=== PATIENT | female | born 1990 | race African-American/Black ===

== ENCOUNTER 2016-12-06 19:20 | Emergency (ER) | payer OTHER ==
[~2016-12-06] VITALS: Ht 160 cm; Wt 71.0 kg
[2016-12-06 19:22] VITALS: BP 109/62; PULSE 76; RESP 16; TEMP 99.6; O2SAT 99
--- NOTE | 2016-12-06 19:34 | PD ---
Physical Exam Time Seen by Provider: 19:32 Narrative 26 year old female with +upt yesterday, here with diarrhea, vomiting, spotting, pelvic pain today. +chills during a nap. LMP october 27. VSS seen at triage desk. Awaiting bed placement. Data Data Last Documented VS Vital Signs Date Time Temp Pulse Resp B/P Pulse Ox O2 Delivery O2 Flow Rate FiO2 12/06/16 19:22 99.6 76 16 109/62 99 MDM Medical Record Reviewed: Yes Supervised Visit with SANTOSH: Yes Scripts No Active Prescriptions or Reported Meds Kenneth Hunt Dec 06, 2016 19:33
[2016-12-06] MEDS ORDERED: SODIUM CHLOR 0.9% 1000 ML INJ 1,000 ML IV ONE (20:05)
--- NOTE | 2016-12-06 20:12 | PD ---
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 Patient states she had a positive urine test yesterday. Her last menstrual cycle was October 27, 2016. Patient is a G4, P1. She reports one previous miscarriage and one previous . The patient states she has had some brown spotting for the past 3 days. She states she has lower abdominal pain and cramping. Patient states nausea, vomiting, diarrhea started today. She reports 2 episodes of vomiting and multiple episodes of diarrhea. No blood in her stool. No fevers or chills. Patient has no chronic medical problems and takes no medications. Patient reports one sexual partner for the past 3 years and denies any risk of STDs. PFSH Past Medical History Medical History: Denies Significant Hx Diminished Hearing: No Immunizations Current: Yes Tetanus Vaccination: < 5 Years Influenza Vaccination: Yes ?: LMP: "OCTOBER" : 2 Para: 1 : 1 Ovarian Cysts: Yes (HX) Social History Alcohol Use: No Tobacco Use: No Substance Use: No Allergies-Medications (Allergen,Severity, Reaction): Coded Allergies: No Known Allergies (Unverified , 12/06/16) Reported Meds & Prescriptions Reported Meds & Active Scripts Active No Active Prescriptions or Reported Medications Review of Systems Except as stated in HPI: all other systems reviewed are Neg Physical Exam Narrative GENERAL: Well-nourished, well-developed female patient, ambulatory. Afebrile. SKIN: Focused skin assessment warm/dry. HEAD: Normocephalic. Atraumatic. EYES: No scleral icterus. No injection or drainage. NECK: Supple, trachea midline. No JVD or lymphadenopathy. CARDIOVASCULAR: Regular rate and rhythm without murmurs, gallops, or rubs. RESPIRATORY: Breath sounds equal bilaterally. No accessory muscle use. Lungs sounds are clear to auscultation. GASTROINTESTINAL: Abdomen soft and nondistended. Patient has tenderness over suprapubic region and left pelvic area. MUSCULOSKELETAL: No cyanosis, or edema. BACK: Nontender without obvious deformity. No CVA tenderness. GENITOURINARY: Normal external genitalia without lesions or erythema. Vaginal vault without blood or drainage. Cervical os was closed with mild brown drainage noted. No cervical motion tenderness. Uterus nontender and nonenlarged. Bilateral adnexa nontender without masses. Exam was done with RN at bedside. Data Data Last Documented VS Vital Signs Date Time Temp Pulse Resp B/P Pulse Ox O2 Delivery O2 Flow Rate FiO2 12/06/16 19:35 16 12/06/16 19:22 99.6 76 109/62 99 Orders Complete Blood Count With Diff (12/06/16 20:05) Comprehensive Metabolic Panel (12/06/16 20:05) Gc And Chlamydia Pcr (12/06/16 20:05) Complete Rh (12/06/16 20:05) Us Pelvis (Ques Preg/Ectopic) (12/06/16 ) Wet Prep Profile (12/06/16 20:05) Urinalysis - C+S If Indicated (12/06/16 20:05) Iv Access Insert/Monitor (12/06/16 20:05) Sodium Chlor 0.9% 1000 Ml Inj (Ns 1000 M (12/06/16 20:05) Ed Urine Pregnancytest Poc (12/06/16 20:05) Ondansetron Inj (Zofran Inj) (12/06/16 20:15) Acetaminophen (Tylenol) (12/06/16 20:15) Beta Hcg (Quant/Titer) (12/06/16 20:08) Labs Laboratory Tests Test 12/06/16 20:40 White Blood Count 8.8 TH/MM3 Red Blood Count 4.36 MIL/MM3 Hemoglobin 12.9 GM/DL Hematocrit 37.3 % Mean Corpuscular Volume 85.6 FL Mean Corpuscular Hemoglobin 29.5 PG Mean Corpuscular Hemoglobin 34.4 % Concent Red Cell Distribution Width 13.3 % Platelet Count 319 TH/MM3 Mean Platelet Volume 8.3 FL Neutrophils (%) (Auto) 61.6 % Lymphocytes (%) (Auto) 30.7 % Monocytes (%) (Auto) 5.2 % Eosinophils (%) (Auto) 1.9 % Basophils (%) (Auto) 0.6 % Neutrophils # (Auto) 5.4 TH/MM3 Lymphocytes # (Auto) 2.7 TH/MM3 Monocytes # (Auto) 0.5 TH/MM3 Eosinophils # (Auto) 0.2 TH/MM3 Basophils # (Auto) 0.1 TH/MM3 CBC Comment DIFF FINAL Differential Comment MDM Medical Decision Making Medical Screen Exam Complete: Yes Emergency Medical Condition: Yes Medical Record Reviewed: Yes Differential Diagnosis Intrauterine versus ectopic versus viral syndrome versus UTI versus electrolyte abnormality versus hyperemesis gravidarum Narrative Course 26-year-old female presents to the emergency department for evaluation nausea, vomiting, diarrhea, lower abdominal crampingpain with a positive test yesterday. She also reports brown spotting for the past 3 days. CBC, CMP , UA, complete Rh, beta hCG are ordered and pending. Urine test is ordered and pending. Swabs for chlamydia and gonorrhea as well as wet prep are ordered. Patient gives verbal consent for pelvic exam. Patient is given normal saline 1 L IV bolus and Zofran 4 mg IV. She is also given Tylenol 650 mg by mouth for pain. UPT is positive. CBC is unremarkable. Remainder of laboratory tests are pending as well as US. Dr. Freitas will resume care and disposition. Scripts No Active Prescriptions or Reported Meds Flory Aguiar Dec 06, 2016 20:12
[2016-12-06] MEDS ORDERED: ACETAMINOPHEN 325 MG TAB PO ONE (20:15)
[2016-12-06] MEDS ORDERED: ONDANSETRON HCL 4 MG/2 ML VIAL IV PUSH ONE (20:15)
[2016-12-06 20:51] LABS: AUTOMATED NEUTROPHIL # 5.4 TH/MM3 (1.8-7.7); BASOPHIL # 0.1 TH/MM3 (0-0.2); BASOPHIL % 0.6 % (0.0-2.0); EOSINOPHIL # 0.2 TH/MM3 (0-0.4); EOSINOPHIL % 1.9 % (0.0-4.0); HEMATOCRIT 37.3 % (35.0-46.0); HEMO FLAGS DIFF FINAL; LYMPH % 30.7 % (9.0-44.0); LYMPHOCYTE # 2.7 TH/MM3 (1.0-4.8); MEAN CELL VOLUME 85.6 FL (80.0-100.0); MEAN CORPUSCULAR HEMOGLOBIN 29.5 PG (27.0-34.0); MEAN CORPUSCULAR HGB CONC 34.4 % (32.0-36.0); MONO % 5.2 % (0.0-8.0); NEUT % 61.6 % (16.0-70.0); PLATELET COUNT 319 TH/MM3 (150-450); RED BLOOD COUNT 4.36 MIL/MM3 (4.00-5.30); RED CELL DISTRIBUTION WIDTH 13.3 % (11.6-17.2); WHITE BLOOD COUNT 8.8 TH/MM3 (4.0-11.0)
[2016-12-06 21:17] LABS: ANION GAP 8 MEQ/L (5-15)
[2016-12-06 21:20] LABS: ALKALINE PHOSPHATASE 71 U/L (45-117); ALT (GPT) 20 U/L (10-53); AST (GOT) 19 U/L (15-37); BICARBONATE 22.9 MEQ/L (21.0-32.0); BLOOD UREA NITROGEN 12 MG/DL (7-18); CHLORIDE 106 MEQ/L (98-107); GLOMERULAR FILTRATION RATE 128 ML/MIN (>89); POTASSIUM 3.9 MEQ/L (3.5-5.1); SODIUM (NA) 137 MEQ/L (136-145); TOTAL BILIRUBIN ADULT 0.2 MG/DL (0.2-1.0)
[2016-12-06 21:28] LABS: BLOOD, URINE SMALL (NEG); COMMENT (UR) CULT NOT INDICATED; CULTURE IF INDICATED CULT NOT INDICATED; GLUCOSE,URINE NEG (NEG); KETONE, URINE NEG (NEG); MUCUS URINE FEW /lpf (OCC); NITRITE,URINE NEG (NEG); PH, URINE 5.5 (5.0-8.5); SQUAMOUS EPITHELIAL CELL URINE 1 /hpf (0-5); URINE COLOR YELLOW (YELLW/STRAW)
[2016-12-06 21:31] LABS: BETA HCG QUANT 4879 MIU/ML (0-5)
[2016-12-06 22:54] VITALS: BP 104/57; PULSE 80; RESP 16; O2SAT 98
[2016-12-06 23:10] LABS: CHLAMYDIA PCR NOT DETECTED (NOT DETECT); NEISSERIA PCR NOT DETECTED (NOT DETECT)
--- NOTE | 2016-12-07 00:08 | RADRPT ---
EXAM DATE/TIME: 12/06/2016 21:47 [facility] COMPARISON: No previous studies available for comparison. INDICATIONS : Bleeding and pain with . LAB(S): Beta-hC MEDICAL HISTORY : . Miscarriage. Ovarian cysts. SURGICAL HISTORY : None. ENCOUNTER: Initial ACUITY: 2 days PAIN SCORE: 8/10 LOCATION: Bilateral pelvis MEASUREMENTS: UTERUS: 8.4 x 5.8 x 4.7 cm ENDOMETRIAL STRIPE: 9 mm RIGHT OVARY: 5.5 x 3.3 x 3.3 cm LEFT OVARY: 3.9 x 1.2 x 1.3 cm FREE FLUID: Yes Adjacent to the right ovary. CROWN RUMP LENGTH: Non visualized. = WKS DAYS FHR: Non visualized. BPM FINDINGS: UTERUS: gestational sac seen measuring 8 x 4 x 3 mm. No yolk sac or heart tones. Nabothia n cysts within the cervix measuring 9 x 5 x 6 mm. RIGHT OVARY: Complex cystic lesion with some minimal mural nodularity measures 3.0 x 3.0 x 2.7 cm. LEFT OVARY: Ovary contains no mass or significant cystic lesion. MISCELLANEOUS: Trace free fluid. CONCLUSION: 1. Probable early gestational sac without yolk sac or pole. Close interval followup recommended . 2. Complex cystic lesion right ovary measures 2.0 cm may be related to corpus luteal cyst. Tigre Tran MD on December 07, 2016 at 0:04 Board Certified Radiologist. This report was verified electronically.
[2016-12-07] MEDS ORDERED: ZOFR4TAB3 SL (00:30)
--- NOTE | 2016-12-07 00:30 | PD ---
Data Data Last Documented VS Vital Signs Date Time Temp Pulse Resp B/P Pulse Ox O2 Delivery O2 Flow Rate FiO2 12/06/16 22:54 80 16 104/57 98 Room Air 12/06/16 19:22 99.6 Orders Complete Blood Count With Diff (12/06/16 20:05) Comprehensive Metabolic Panel (12/06/16 20:05) Gc And Chlamydia Pcr (12/06/16 20:05) Complete Rh (12/06/16 20:05) Wet Prep Profile (12/06/16 20:05) Urinalysis - C+S If Indicated (12/06/16 20:05) Iv Access Insert/Monitor (12/06/16 20:05) Sodium Chlor 0.9% 1000 Ml Inj (Ns 1000 M (12/06/16 20:05) Ed Urine Pregnancytest Poc (12/06/16 20:05) Ondansetron Inj (Zofran Inj) (12/06/16 20:15) Acetaminophen (Tylenol) (12/06/16 20:15) Beta Hcg (Quant/Titer) (12/06/16 20:08) Us Pelvis (Ques Pr/Ect)W Trans (12/06/16 ) Labs Laboratory Tests Test 12/06/16 12/06/16 12/06/16 20:40 20:45 20:55 White Blood Count 8.8 TH/MM3 Red Blood Count 4.36 MIL/MM3 Hemoglobin 12.9 GM/DL Hematocrit 37.3 % Mean Corpuscular Volume 85.6 FL Mean Corpuscular Hemoglobin 29.5 PG Mean Corpuscular Hemoglobin 34.4 % Concent Red Cell Distribution Width 13.3 % Platelet Count 319 TH/MM3 Mean Platelet Volume 8.3 FL Neutrophils (%) (Auto) 61.6 % Lymphocytes (%) (Auto) 30.7 % Monocytes (%) (Auto) 5.2 % Eosinophils (%) (Auto) 1.9 % Basophils (%) (Auto) 0.6 % Neutrophils # (Auto) 5.4 TH/MM3 Lymphocytes # (Auto) 2.7 TH/MM3 Monocytes # (Auto) 0.5 TH/MM3 Eosinophils # (Auto) 0.2 TH/MM3 Basophils # (Auto) 0.1 TH/MM3 CBC Comment DIFF FINAL Differential Comment Sodium Level 137 MEQ/L Potassium Level 3.9 MEQ/L Chloride Level 106 MEQ/L Carbon Dioxide Level 22.9 MEQ/L Anion Gap 8 MEQ/L Blood Urea Nitrogen 12 MG/DL Creatinine 0.68 MG/DL Estimat Glomerular Filtration 128 ML/MIN Rate Random Glucose 83 MG/DL Calcium Level 9.0 MG/DL Total Bilirubin 0.2 MG/DL Aspartate Amino Transf 19 U/L (AST/SGOT) Alanine Aminotransferase 20 U/L (ALT/SGPT) Alkaline Phosphatase 71 U/L Total Protein 7.4 GM/DL Albumin 3.5 GM/DL Human Chorionic Gonadotropin, 4879 MIU/ML Quant Blood Type A POSITIVE Rho(D) Type POSITIVE Urine Color YELLOW Urine Turbidity CLEAR Urine pH 5.5 Urine Specific [place] 1.030 Urine Protein TRACE mg/dL Urine Glucose (UA) NEG mg/dL Urine Ketones NEG mg/dL Urine Occult Blood SMALL Urine Nitrite NEG Urine Bilirubin NEG Urine Urobilinogen LESS THAN 2.0 MG/DL Urine Leukocyte Esterase NEG Urine RBC 2 /hpf Urine WBC 1 /hpf Urine Squamous Epithelial 1 /hpf Cells Urine Mucus FEW /lpf Microscopic Urinalysis Comment CULT NOT INDICATED Clue Cells (Wet Prep) NONE SEEN Vaginal Trichomonas (Wet Prep) NONE SEEN Vaginal Yeast (Wet Prep) NONE SEEN Chlamydia trachomatis DNA NOT DETECTED (PCR) Neisseria gonorrhoeae DNA NOT DETECTED (PCR) MDM Supervised Visit with SANTOSH: Yes Narrative Course I, Dr. Freitas, have reviewed the advance practice practitioner's documentation and am in agreement, met with the patient face to face, made the diagnosis, and the medical decision making was done by me. See her note for further details. Briefly this is 26-year-old female who presented to the emergency department for evaluation of nausea, vomiting, diarrhea, pubic abdominal pain, and vaginal spotting. Patient reports having a positive home urine test yesterday. Her LMP was October 27, 2016. She has had some lower abdominal/pelvic pain and cramping since yesterday. Nausea, vomiting, and diarrhea started today. She is also had some light vaginal spotting. Vital signs show heart rate 76, blood pressure 109/62, pulse ox 99% on room air , oral temp of 99.6F. CBC shows WBC 8.8, hemoglobin 12.9, hematocrit 37.3, platelets 319. CMP is unremarkable. Beta hCG is 4879. UA shows small occult blood, few mucus, not suggestive of UTI. Wet prep is negative for clue cells, negative for yeast, negative for Trichomonas. Gonorrhea and chlamydia PCR are negative. Blood type is A+. Pelvic ultrasound: CONCLUSION: 1. Probable early gestational sac without yolk sac or pole. Close interval followup recommended. 2. Complex cystic lesion right ovary measures 2.0 cm may be related to corpus luteal cyst. Patient was made aware of all findings. She is resting comfortably and she is feeling much better after receiving Zofran and Tylenol. Her abdominal exam is benign. There is no tenderness. No peritoneal signs. Her H&H is normal. Her vital signs are normal. At this point the plan is to discharge patient home and have her follow-up in the emergency department in 48 hours for repeat beta hCG. She was informed on when to return to the emergency Department sooner. She verbalizes understanding and agreement with plan. 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 Return to the emergency Department sooner for worsening symptoms or any other concerns as discussed. Stay hydrated with plenty of fluids. 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 Scripts Ondansetron Odt (Zofran Odt)4 Mg Tab4 Mg SL Q12HR PRN (Nausea/Vomiting) #10 TAB Ref 0 Prov:Marcelo Freiats MD 12/07/16 Disposition: 01 DISCHARGE HOME Condition: Stable Marcelo Freitas MD Dec 07, 2016 00:30
[2016-12-07 01:07] VITALS: BP 110/56; PULSE 80; RESP 18; O2SAT 96
== END 2016-12-07 01:10 | disposition home or self-care (01) ==
LOC: NEPD 19:20
DX: O20.9 Hemorrhage in early pregnancy, unspecified (principal); K52.9 Noninfective gastroenteritis and colitis, unspecified; R19.7 Diarrhea, unspecified; R10.2 Pelvic and perineal pain
CPT/HCPCS: 76700; 76817; 80053; 81001; 84702; 84703; 85025; 86901; 87210; 87491; 87591; 96361; 96374; 99284; J2405; J7030

== ENCOUNTER 2016-12-24 21:40 | Observation (INO) | payer MEDICAID, OTHER ==
[~2016-12-24] VITALS: Ht 170.2 cm; Wt 77.4 kg
[~2016-12-24 21:40] MED LIST: ZOFR4TAB3 SL
[2016-12-24 21:41] VITALS: BP 120/53; PULSE 88; RESP 18; TEMP 97.9; O2SAT 98
--- NOTE | 2016-12-24 23:18 | PD ---
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 Pain started periumbilical and from the right back and now it is more right lower abdomen. +NBNB vomiting. +Chills. Pt had vaginal bleeding with clots 3 days ago but it resolved on its own. Pt was seen here on 12/06/16 for first trimester bleeding and had bHCG 4879. US at the time showed probably early gestational sac without yolk sac or pole. Complex cystic lesion in right ovary measuring 2.0 may be related to corpus luteus cyst. +NBNB vomiting. + Chills. Denies any fever, chest pain, sob, vaginal bleeding. PFSH Past Medical History Diminished Hearing: No Immunizations Current: Yes ?: : 2 Para: 1 : 1 Ovarian Cysts: Yes (HX) Social History Alcohol Use: No Tobacco Use: No Substance Use: No Allergies-Medications (Allergen,Severity, Reaction): Coded Allergies: No Known Allergies (Unverified , 12/24/16) Reported Meds & Prescriptions Reported Meds & Active Scripts Active No Active Prescriptions or Reported Medications Review of Systems Except as stated in HPI: all other systems reviewed are Neg Physical Exam Narrative GENERAL: 26yo F in mild distress. SKIN: Focused skin assessment warm/dry. HEAD: Atraumatic. Normocephalic. CARDIOVASCULAR: Regular rate and rhythm. No murmur appreciated. RESPIRATORY: No accessory muscle use. Clear to auscultation. Breath sounds equal bilaterally. GASTROINTESTINAL: Abdomen soft, +TTP RLQ >RUQ. No rebound tenderness or guarding. PELVIC: Cervical os is closed. No blood. Normal physiologic clear discharge. MUSCULOSKELETAL: No obvious deformities. No clubbing. No cyanosis. No edema. NEUROLOGICAL: Awake and alert. No obvious cranial nerve deficits. Motor grossly within normal limits. Normal speech. PSYCHIATRIC: Appropriate mood and affect; insight and judgment normal. Data Data Last Documented VS Vital Signs Date Time Temp Pulse Resp B/P Pulse Ox O2 Delivery O2 Flow Rate FiO2 12/25/16 04:27 18 12/25/16 01:29 79 103/58 99 Room Air 12/24/16 21:41 97.9 Orders Complete Blood Count With Diff (12/24/16 23:13) Basic Metabolic Panel (Bmp) (12/24/16 23:13) Act Partial Throm Time (Ptt) (12/24/16 23:13) Prothrombin Time / Inr (Pt) (12/24/16 23:13) Type And Screen (12/24/16 23:13) Bhcg Screen Qualitative (12/24/16 23:13) Urinalysis - C+S If Indicated (12/24/16 23:13) Ed Poc Ultrasound (12/25/16 ) Ondansetron Inj (Zofran Inj) (12/25/16 01:15) Morphine Inj (Morphine Inj) (12/25/16 01:15) Ct Abd/Pel W Iv Contrast(Rout) (12/25/16 ) Iohexol 350 Inj (Omnipaque 350 Inj) (12/25/16 02:12) Morphine Inj (Morphine Inj) (12/25/16 04:15) Gc And Chlamydia Pcr (12/25/16 04:21) Wet Prep Profile (12/25/16 04:21) Consult General Surgery (12/25/16 ) Admit Order (Ed Use Only) (12/25/16 04:47) Labs Laboratory Tests Test 12/24/16 12/25/16 21:17 01:00 White Blood Count 14.0 TH/MM3 Red Blood Count 4.64 MIL/MM3 Hemoglobin 13.3 GM/DL Hematocrit 40.3 % Mean Corpuscular Volume 86.9 FL Mean Corpuscular Hemoglobin 28.6 PG Mean Corpuscular Hemoglobin 32.9 % Concent Red Cell Distribution Width 13.6 % Platelet Count 290 TH/MM3 Mean Platelet Volume 8.6 FL Neutrophils (%) (Auto) 85.4 % Lymphocytes (%) (Auto) 9.7 % Monocytes (%) (Auto) 4.4 % Eosinophils (%) (Auto) 0.2 % Basophils (%) (Auto) 0.3 % Neutrophils # (Auto) 11.9 TH/MM3 Lymphocytes # (Auto) 1.4 TH/MM3 Monocytes # (Auto) 0.6 TH/MM3 Eosinophils # (Auto) 0.0 TH/MM3 Basophils # (Auto) 0.0 TH/MM3 CBC Comment DIFF FINAL Differential Comment Prothrombin Time 12.6 SEC Prothromb Time International 1.1 RATIO Ratio Activated Partial 29.7 SEC Thromboplast Time Sodium Level 139 MEQ/L Potassium Level 3.7 MEQ/L Chloride Level 104 MEQ/L Carbon Dioxide Level 28.3 MEQ/L Anion Gap 7 MEQ/L Blood Urea Nitrogen 10 MG/DL Creatinine 0.75 MG/DL Estimat Glomerular Filtration 114 ML/MIN Rate Random Glucose 87 MG/DL Calcium Level 9.5 MG/DL Beta HCG, Qualitative 12 MIU/ML Blood Type A POSITIVE Antibody Screen NEGATIVE Urine Color LIGHT-YELLOW Urine Turbidity CLEAR Urine pH 7.5 Urine Specific [place] 1.008 Urine Protein NEG mg/dL Urine Glucose (UA) NEG mg/dL Urine Ketones NEG mg/dL Urine Occult Blood NEG Urine Nitrite NEG Urine Bilirubin NEG Urine Urobilinogen LESS THAN 2.0 MG/DL Urine Leukocyte Esterase NEG Urine RBC 2 /hpf Urine WBC LESS THAN 1 /hpf Urine Squamous Epithelial 5 /hpf Cells Urine Bacteria RARE /hpf Microscopic Urinalysis Comment CULT NOT INDICATED MDM Medical Decision Making Medical Screen Exam Complete: Yes Emergency Medical Condition: Yes Interpretation(s) Laboratory Tests Test 12/24/16 12/25/16 21:17 01:00 White Blood Count 14.0 TH/MM3 (4.0-11.0) Red Blood Count 4.64 MIL/MM3 (4.00-5.30) Hemoglobin 13.3 GM/DL (11.6-15.3) Hematocrit 40.3 % (35.0-46.0) Mean Corpuscular Volume 86.9 FL (80.0-100.0) Mean Corpuscular Hemoglobin 28.6 PG (27.0-34.0) Mean Corpuscular Hemoglobin 32.9 % Concent (32.0-36.0) Red Cell Distribution Width 13.6 % (11.6-17.2) Platelet Count 290 TH/MM3 (150-450) Mean Platelet Volume 8.6 FL (7.0-11.0) Neutrophils (%) (Auto) 85.4 % (16.0-70.0) Lymphocytes (%) (Auto) 9.7 % (9.0-44.0) Monocytes (%) (Auto) 4.4 % (0.0-8.0) Eosinophils (%) (Auto) 0.2 % (0.0-4.0) Basophils (%) (Auto) 0.3 % (0.0-2.0) Neutrophils # (Auto) 11.9 TH/MM3 (1.8-7.7) Lymphocytes # (Auto) 1.4 TH/MM3 (1.0-4.8) Monocytes # (Auto) 0.6 TH/MM3 (0-0.9) Eosinophils # (Auto) 0.0 TH/MM3 (0-0.4) Basophils # (Auto) 0.0 TH/MM3 (0-0.2) CBC Comment DIFF FINAL Differential Comment Prothrombin Time 12.6 SEC (9.8-11.6) Prothromb Time International 1.1 RATIO Ratio Activated Partial 29.7 SEC Thromboplast Time (24.3-30.1) Sodium Level 139 MEQ/L (136-145) Potassium Level 3.7 MEQ/L (3.5-5.1) Chloride Level 104 MEQ/L (98-107) Carbon Dioxide Level 28.3 MEQ/L (21.0-32.0) Anion Gap 7 MEQ/L (5-15) Blood Urea Nitrogen 10 MG/DL (7-18) Creatinine 0.75 MG/DL (0.50-1.00) Estimat Glomerular Filtration 114 ML/MIN Rate (>89) Random Glucose 87 MG/DL (74-106) Calcium Level 9.5 MG/DL (8.5-10.1) Beta HCG, Qualitative 12 MIU/ML (0-5) Blood Type A POSITIVE Antibody Screen NEGATIVE Urine Color LIGHT-YELLOW (YELLW/STRAW) Urine Turbidity CLEAR (CLEAR) Urine pH 7.5 (5.0-8.5) Urine Specific [place] 1.008 (1.002-1.035) Urine Protein NEG mg/dL (NEG-TRACE) Urine Glucose (UA) NEG mg/dL (NEG) Urine Ketones NEG mg/dL (NEG) Urine Occult Blood NEG (NEG) Urine Nitrite NEG (NEG) Urine Bilirubin NEG (NEG) Urine Urobilinogen LESS THAN 2.0 MG/DL (LESS THAN 2.0) Urine Leukocyte Esterase NEG (NEG) Urine RBC 2 /hpf (0-3) Urine WBC LESS THAN 1 /hpf (0-5) Urine Squamous Epithelial 5 /hpf (0-5) Cells Urine Bacteria RARE /hpf (NONE) Microscopic Urinalysis Comment CULT NOT INDICATED Last Impressions Pelvis Ultrasound 12/25/16 0000 Signed Impressions: Service Date/Time: Sunday, December 25, 2016 10:39 - CONCLUSION: 1. No gestational sac seen in the uterus. No retained products of conception identified in the uterus. 2. Trace free fluid in the pelvis. 3. Ovaries within normal limits. Rodriguez Bunch MD Abdomen/Pelvis CT 12/25/16 0000 Signed Impressions: Service Date/Time: Sunday, December 25, 2016 02:10 - CONCLUSION: No convincing evidence of appendicitis but I don't clearly see the appendix. No free fluid or other secondary evidence. If clinical concern persists, followup pelvic CT in 12-24 hours with oral contrast is suggested. Jimmy Galarza MD Differential Diagnosis Ectopic vs. Appendicitis vs. Tuboovarian abscess vs. incomplete Narrative Course 26yo F with RLQ pain concerning for appendicitis. Labs reviewed, leukocytosis of 14.0. bHCG is 12. This was markedly decreased from last bHCG and pt had vaginal bleeding and clots 3 days ago that has stopped. Pt likely had spontaneous . UA showed no leukocyte. No nitrite. Culture not indicated. CTa/p showed no convincing evidence of appendicitis but I dont clearly see the appendix. No free fluid or other secondary evidence. If clinical concern persists, follow up pelvic CT in 12-24 hours with oral contrast is suggested. Pt was given morphine 4mg IV and zofran 4mg IV and pt had improved. Pt reevaluated at bedside and pain has returned and pt still has focal ttp in RLQ. No rebound tenderness or guarding. I am still clinically concern about appendicitis so general surgeon call and pt given another dose of morphine. Discussed with Dr. Chavez and he recommend that I admit to medicine and place a consultation for him and he will evaluate the patient. Procedures Procedure Narrative Emergency department FAST was performed with patient consent. The curvilinear probe was used in the right upper quadrant/Mary's pouch, suprapubic, left upper quadrant/suprarenal space, epigastric, subxyphoid. There was no evidence of peritoneal free fluid or pericardial effusion. Diagnosis Primary Impression: Abdominal pain Qualified Code: R10.31 - Right lower quadrant abdominal pain Admitting Information Admitting Physician Requests: Observation Scripts No Active Prescriptions or Reported Meds Bharati Chacon DO Dec 24, 2016 23:18
[2016-12-24 23:57] LABS: AUTOMATED NEUTROPHIL # 11.9 TH/MM3 (1.8-7.7); BASOPHIL % 0.3 % (0.0-2.0); EOSINOPHIL % 0.2 % (0.0-4.0); HEMATOCRIT 40.3 % (35.0-46.0); HEMO FLAGS DIFF FINAL; LYMPH % 9.7 % (9.0-44.0); LYMPHOCYTE # 1.4 TH/MM3 (1.0-4.8); MEAN CELL VOLUME 86.9 FL (80.0-100.0); MEAN CORPUSCULAR HEMOGLOBIN 28.6 PG (27.0-34.0); MEAN CORPUSCULAR HGB CONC 32.9 % (32.0-36.0); MONO % 4.4 % (0.0-8.0); NEUT % 85.4 % (16.0-70.0); PLATELET COUNT 290 TH/MM3 (150-450); RED BLOOD COUNT 4.64 MIL/MM3 (4.00-5.30); RED CELL DISTRIBUTION WIDTH 13.6 % (11.6-17.2)
[2016-12-25] VITALS (9 sets, daily range): BP systolic 100–115; BP diastolic 52–74; PULSE 72–87; RESP 16–18; TEMP 96.3–97.9; O2SAT 96–100
[2016-12-25 00:03] LABS: APTT (PATIENT) 29.7 SEC (24.3-30.1); INTERNATIONAL NORMALIZED RATIO 1.1 RATIO; PROTHROMBIN TIME - PATIENT 12.6 SEC (9.8-11.6)
[2016-12-25 00:14] LABS: BICARBONATE 28.3 MEQ/L (21.0-32.0); POTASSIUM 3.7 MEQ/L (3.5-5.1)
[2016-12-25] MEDS ORDERED: ONDANSETRON HCL 4 MG/2 ML VIAL IV PUSH ONE ×2 (01:15→12:21)
[2016-12-25] MEDS ORDERED: MORPHINE SULFATE 4 MG/ML INJ IV PUSH ONE ×2 (01:15→04:15)
[2016-12-25 02:08] LABS: BACTERIA, URINE RARE /hpf; BLOOD, URINE NEG (NEG); COMMENT (UR) CULT NOT INDICATED; CULTURE IF INDICATED CULT NOT INDICATED; GLUCOSE,URINE NEG (NEG); KETONE, URINE NEG (NEG); NITRITE,URINE NEG (NEG); PH, URINE 7.5 (5.0-8.5); SQUAMOUS EPITHELIAL CELL URINE 5 /hpf (0-5); URINE COLOR LIGHT-YELLOW (YELLW/STRAW)
[2016-12-25] MEDS ORDERED: IOHEXOL 350 MG/ML 10 ML VIAL (for RAD DIAG) IV ONE ×2 (02:12→17:57)
--- NOTE | 2016-12-25 02:36 | RADRPT ---
EXAM DATE/TIME: 12/25/2016 02:10 [facility] COMPARISON: CT ABDOMEN & PELVIS W/O CONTRAST, April 28, 2016, 11:03. INDICATIONS : Right lower quadrant and groin pain. IV CONTRAST: 95 cc Omnipaque 350 (iohexol) IV ORAL CONTRAST: No oral contrast ingested. RADIATION DOSE: 6.92 CTDIvol (mGy) MEDICAL HISTORY : Ovarian cysts. SURGICAL HISTORY : None. ENCOUNTER: Initial ACUITY: 3 days PAIN SCALE: 3/10 LOCATION: Bilateral lower quadrant TECHNIQUE: Volumetric scanning of the abdomen and pelvis was performed. Using automated exposure control and ad justment of the mA and/or kV according to patient size, radiation dose was kept as low as reasonably achievable to obtain optimal diagnostic quality images. FINDINGS: LOWER LUNGS: The visualized lower lungs are clear. LIVER: Homogeneous density without lesion. There is no dilation of the biliary tree. No calcified gallston es. SPLEEN: Normal size without lesion. PANCREAS: Within normal limits. KIDNEYS: Normal in size and shape. There is no mass, stone or hydronephrosis. ADRENAL GLANDS: Within normal limits. VASCULAR: There is no aortic aneurysm. BOWEL/MESENTERY: The stomach, small bowel, and colon demonstrate no acute abnormality. There is no free intraperitone al air or fluid. Cecum is low lying, seen in the central low pelvic cavity. I don't clearly see the a ppendix. No perceptible inflammatory changes. No free fluid. ABDOMINAL WALL: Within normal limits. RETROPERITONEUM: There is no lymphadenopathy. BLADDER: No wall thickening or mass. REPRODUCTIVE: Within normal limits. INGUINAL: There is no lymphadenopathy or hernia. MUSCULOSKELETAL: Within normal limits for patient age. CONCLUSION: No convincing evidence of appendicitis but I don't clearly see the appendix. No free fluid or other s econdary evidence. If clinical concern persists, followup pelvic CT in 12-24 hours with oral contrast is suggested. Jimmy Galarza MD on December 25, 2016 at 2:30 Board Certified Radiologist. This report was verified electronically.
[2016-12-25] MEDS ORDERED: ACETAMINOPHEN 325 MG TAB PO PRN (05:15)
[2016-12-25] MEDS ORDERED: ONDANSETRON HCL 4 MG/2 ML VIAL IVP PRN (05:15)
[2016-12-25] MEDS ORDERED: NALOXONE HCL 0.4 MG/ML AMP IV PRN (05:15)
[2016-12-25] MEDS ORDERED: MORPHINE SULFATE 4 MG/ML INJ IV PUSH PRN (05:15)
[2016-12-25] MEDS ORDERED: SODIUM CHLORIDE 0.9% FLUSH 10 ML FLUSH IV FLUSH PRN (05:15)
--- NOTE | 2016-12-25 06:16 | HHI.HP ---
[place] [facility] Non-Staff Admission Diagnosis Possible appendicitis Diagnoses: Chief Complaint: abd pain Travel History International Travel<30 Days: No Contact w/Intl Traveler <30 Da: No Traveled to Known Affected Are: No History of Present Illness This is a 26 year old female patient who denies prior medical history. Patient is presents to the ED with c/o abdominal pain that started about 3pm for 0.9 2017. Pain started periumbilical with radiation to the back and now pain is located in the right lower abdominal quadrant. Patient reports the abdominal pain is decreased with the morphine given in emergency department. Abdominal pain worse with palpation. Patient reports associated nausea vomiting and chills. Pt had vaginal bleeding with clots 3 days ago that has spontaneously resolved. Pt was seen here on 12/06/16 for first trimester bleeding and had bHCG 4879. US at the time showed probably early gestational sac without yolk sac or pole. Complex cystic lesion in right ovary measuring 2.0 may be related to corpus luteus cyst. bHCG at this time is 12. Patient denies chest pain or shortness of breath. CT of abdomen and pelvis reveals: No convincing evidence of appendicitis but I don't clearly see the appendix. No free fluid or other secondary evidence. If clinical concern persists, followup pelvic CT in 12-24 hours with oral contrast is suggested Review of Systems Except as stated in HPI: all other systems reviewed are Neg Past Family Social History Past Medical History This is a 26 year old female patient who denies prior medical history. Patient is Past Surgical History Denies prior surgical interventions Reported Medications No Active Prescriptions or Reported Medications Allergies: Coded Allergies: No Known Allergies (Unverified , 12/24/16) Active Ordered Medications Current Medications Medications (Trade) Dose Ordered Sig/Rod Route Start Time Stop Time Status Last Admin (NS Flush) 2 ml UNSCH PRN IV FLUSH 12/25/16 05:15 (NS Flush) 2 ml BID IV FLUSH 12/25/16 09:00 (Tylenol) 650 mg Q4H PRN PO 4/30/17 05:15 (Zofran Inj) 4 mg Q6H PRN IVP 12/25/16 05:15 (Narcan Inj) 0.4 mg UNSCH PRN IV 12/25/16 05:15 (Morphine Inj) 2 mg Q4H PRN IV PUSH 12/25/16 05:15 Family History Father in his 40s secondary to HIV Mother is 48 alive and healthy Social History Patient denies tobacco use or illicit drug use Patient reports a rare social EtOH use Physical Exam Vital Signs Vital Signs Date Time Temp Pulse Resp B/P Pulse Ox O2 Delivery O2 Flow Rate FiO2 12/25/16 05:21 98 12/25/16 04:27 18 12/25/16 01:44 18 12/25/16 01:29 79 18 103/58 99 Room Air 12/24/16 21:41 97.9 88 18 120/53 98 Physical Exam GENERAL: This is a well-nourished, well-developed patient, in no apparent distress. SKIN: No rashes, ecchymoses or lesions. Cool and dry. HEAD: Atraumatic. Normocephalic. No temporal or scalp tenderness. NECK: Trachea midline. No JVD or lymphadenopathy. Supple, nontender, no meningeal signs. CARDIOVASCULAR: Regular rate and rhythm without murmurs, gallops, or rubs. RESPIRATORY: Clear to auscultation. Breath sounds equal bilaterally. No wheezes , rales, or rhonchi. GASTROINTESTINAL: Abdomen soft, tender right upper and lower quadrant right lower quadrant more tender than upper quadrant, nondistended. MUSCULOSKELETAL: Extremities without clubbing, cyanosis, or edema. No joint tenderness, effusion, or edema noted. No calf tenderness. Negative Homans sign bilaterally. NEUROLOGICAL: Awake and alert. No focal deficits identified. Motor and sensory grossly within normal limits. Five out of 5 muscle strength in all muscle groups. Normal speech. Laboratory Laboratory Tests Test 12/24/16 12/25/16 21:17 01:00 White Blood Count 14.0 Red Blood Count 4.64 Hemoglobin 13.3 Hematocrit 40.3 Mean Corpuscular Volume 86.9 Mean Corpuscular Hemoglobin 28.6 Mean Corpuscular Hemoglobin 32.9 Concent Red Cell Distribution Width 13.6 Platelet Count 290 Mean Platelet Volume 8.6 Neutrophils (%) (Auto) 85.4 Lymphocytes (%) (Auto) 9.7 Monocytes (%) (Auto) 4.4 Eosinophils (%) (Auto) 0.2 Basophils (%) (Auto) 0.3 Neutrophils # (Auto) 11.9 Lymphocytes # (Auto) 1.4 Monocytes # (Auto) 0.6 Eosinophils # (Auto) 0.0 Basophils # (Auto) 0.0 CBC Comment DIFF FINAL Differential Comment Prothrombin Time 12.6 Prothromb Time International 1.1 Ratio Activated Partial 29.7 Thromboplast Time Sodium Level 139 Potassium Level 3.7 Chloride Level 104 Carbon Dioxide Level 28.3 Anion Gap 7 Blood Urea Nitrogen 10 Creatinine 0.75 Estimat Glomerular Filtration 114 Rate Random Glucose 87 Calcium Level 9.5 Beta HCG, Qualitative 12 Blood Type A POSITIVE Antibody Screen NEGATIVE Urine Color LIGHT-YELLOW Urine Turbidity CLEAR Urine pH 7.5 Urine Specific [place] 1.008 Urine Protein NEG Urine Glucose (UA) NEG Urine Ketones NEG Urine Occult Blood NEG Urine Nitrite NEG Urine Bilirubin NEG Urine Urobilinogen LESS THAN 2.0 Urine Leukocyte Esterase NEG Urine RBC 2 Urine WBC LESS THAN 1 Urine Squamous Epithelial 5 Cells Urine Bacteria RARE Microscopic Urinalysis Comment CULT NOT INDICATED Result Diagram: 12/24/16211612/24/162116 Imaging Last Impressions Abdomen/Pelvis CT 12/25/16 0000 Signed Impressions: Service Date/Time: Sunday, December 25, 2016 02:10 - CONCLUSION: No convincing evidence of appendicitis but I don't clearly see the appendix. No free fluid or other secondary evidence. If clinical concern persists, followup pelvic CT in 12-24 hours with oral contrast is suggested. Jimmy Galarza MD Assessment and Plan Problem List: (1) Abdominal pain ICD Code: R10.9 Status: Acute Assessment and Plan This is a 26 year old female patient who denies prior medical history. Patient is presents to the ED with c/o abdominal pain that started about 3pm . On 12/06/16 patient had first trimester bleeding and had bHCG 4879. bHCG at this time is 12. CT of abdomen and pelvis reveals: No convincing evidence of appendicitis but I don't clearly see the appendix. No free fluid or other secondary evidence. If clinical concern persists, followup pelvic CT in 12-24 hours with oral contrast is suggested Abdominal pain possibly related to recent miscarriage versus appendicitis CT of abdomen reviewed and reveals: No convincing evidence of appendicitis but I don't clearly see the appendix. No free fluid or other secondary evidence. If clinical concern persists, followup pelvic CT in 12-24 hours with oral contrast is suggested ER provider discussed with general surgery on-call Dr. Chavez who will see patient in consult today Consulted general surgery pending Recent miscarriage- f/u with SUPPLY CHAIN LOGISTICS MANAGER DVT prophylaxis with SCDs Discussed with ER provider, nursing and patient Attending Statement Patient seen and examined by me with the nurse at the bedside, stated the pain is 8 out of 10, she has been given morphine. Patient told me she never seek medical advice since she was here on the , she had significant bleed 3 days ago with clots and and no other tissues, positive nausea chills "Feeling weird when she moved bowel or pass gas "no dysuria no headache or lightheaded, no rectal bleed Patient had 1 miscarriage and 1 in the past she has 1 son All other systems reviewed and was negative except above, f Denies smoking alcohol or illicit drug abuse No family history of miscarriages or bleeding disorder or ectopic , father of HIV No significant past medical history except her OB G as above and no surgeries PE: GENERAL: This is a well-nourished, well-developed patient, in no apparent distress. SKIN: No rashes, warm and dry HEAD: Atraumatic. Normocephalic. EYES: Pupils equal round and reactive. Extraocular motions intact. No scleral icterus. ENT: Nose without bleeding, or drainage, Airway patent. NECK: Trachea midline. Supple CARDIOVASCULAR: Regular rate and rhythm without murmurs, gallops, or rubs. RESPIRATORY: Fair air entry bilaterally. No wheezes, rales, or rhonchi. GASTROINTESTINAL: Abdomen soft, nondistended, positive tenderness in the right lower quadrant, Positive bowel sounds MUSCULOSKELETAL: Extremities without clubbing, cyanosis, or edema. Pedal pulses appreciated NEUROLOGICAL: Awake and alert. Moves all extremity. Normal speech.no focal neurological deficit Lab and CT as above I personally reviewed the CT of the abdomen I agree with the above, I called the SUPPLY CHAIN LOGISTICS MANAGER transcription manager Dr. Mason, discussed the case with her, she agreed with intravaginal ultrasound, and she graciously will see the patient today, Patient may have miscarriages with remnant of the station of sac versus ectopic versus endometritis post miscarriage, I'll start with a dose of Zosyn considering her leukocytosis and left shift and will defer further antibiotic coverage, I ordered intravaginal ultrasound If needed to SUPPLY CHAIN LOGISTICS MANAGER Problem Qualifiers (1) Abdominal pain: Qualified Code: R10.31 - Right lower quadrant abdominal pain Tamara Nobles Dec 25, 2016 06:16 Devante Capone MD Dec 25, 2016 09:02
[2016-12-25] MEDS: ACETAMINOPHEN/HYDROcodone 325 MG/5 MG TAB PO PRN ×2 (06:25→11:11)
[2016-12-25 09:31] LABS: CHLAMYDIA PCR NOT DETECTED (NOT DETECT); NEISSERIA PCR NOT DETECTED (NOT DETECT)
[2016-12-25] MEDS ORDERED: PIPERACIL-TAZO 4.5 GM PREMIX 100 ML IV ONE (10:00)
--- NOTE | 2016-12-25 10:01 | PD.CONS ---
HPI Chief Complaint consult ordered by IM for RLQ/RUQ pain in female pt with +quant beta hcg Date Seen: Dec 25, 2016 Time Seen: 09:20 Travel History International Travel<30 Days: No Contact w/Intl Traveler<30Days: No Known Affected Area: No History of Present Illness HPI 26 yo with LMP 10/27/16 admitted overnight for severe RLQ pain, concern for possible appendicitis. Pt was seen earlier this month in the ED with quant beta hcg >4000 and intrauterine gestational sac at that time, right ovarian cyst , likely corpus luteum visualized. 3 days ago pt states she woke up with pelvic pain and cramping, passed 2 large clots of tissue "it was like my miscarriage I had after my son was born." Bleeding was like a regular period for a few hours after that then stopped on Monday. No bleeding vaginally since that time. On ER evaluation quant beta hcg is now 12. Rh positive blood type. Pt states yesterday afternoon she was getting ready to go to "[email or web address]" in [place] with her cousin and she had some right-sided flank pain, she took Tylenol without relief and pain became increasingly worse, leading pt to drive back here to [facility] where she lives and come to the ER. Pain is described as sharp in right low abdomen with radiation to R flank, was 8/10 when first presented and now reports at 4-5/10. Denies fever but states initially had nausea, vomiting, and chills which have since subsided. Pt is laying in bed and conversing normally with me when she reports this. Was on the phone when I first entered room. Pt states she has never had pain like this before, has had no new foods, medications, exposures, or trauma. Last time pt was sexually active was about a week ago, pt states she is monogamous with her boyfriend who is the father of this most recent . They do not use barrier protection. When they were active last week there was no new pain, bleeding, cramping, or abnormal discharge following activity. Pt denies h/o STIs or PID. Pt denies dysuria or change in bowel habits. Last BM was Monday evening, pt states she usually has a BM every other day and this is normal for her. Para: 1 : 4 Last Menstrual Period: Oct 28, 2016 Miscarriage: 1 : 1 History Past Medical History Narrative Medical denies significant Obstetric History Obstetric History G1 = full term vaginal August 2009, male ([place]) G2 = SAB at 6 wks, October 2009 ([place]) G3 = EAB with D&C, 2014 ([place]) G4 = current, suspect completed miscarriage at 6-7 wks based on LMP Past Surgical History Narrative Surgical D&C in 2014 for termination of Family History Narrative Family History mother diagnosed with breast cancer this year, age 48 maternal grandmother with breast cancer in 70s, still living age 83 denies h/o uterine, ovarian, colon cancer Social History Narrative Social History 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, 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 previously lived in [facility] but moved to [facility] in January 2016 has not established with SWINE EXTENSION FIELD SPECIALIST in this area, planned to go back to [place] for the summer and see physician there she is established with lives with boyfriend and 7 year old son 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 (quit as she plans to spend summer in [place]) denies h/o STIs, PID, or other communicable diseases Alcohol Use: No Tobacco Use: No Substance Abuse: No Allergies-Medications (Allergen,Severity, Reaction): Coded Allergies: No Known Allergies (Unverified , 12/24/16) Home Meds Discontinued Scripts Ondansetron Odt (Zofran Odt)4 Mg Tab4 Mg SL Q12HR PRN (Nausea/Vomiting) #10 TAB Ref 0 Prov:Marcelo Freitas MD 12/07/16 Review of Systems General / Constitutional: Chills, No: Fever, Weight Gain, Other Eyes: No: Diploplia, Blurred Vision, Visual changes, Pain, Photophobia HENT: No: Headaches, Vertigo, Lightheadedness Cardiovascular: No: Irregular Rhythm, Chest Pain or Discomfort, Palpitations, Tachycardia, Syncope, Varicosities, Edema, Cyanosis Respiratory: No: Cough, Short of Breath, Other Gastrointestinal: Nausea, Vomiting, Abdominal Pain, No: Diarrhea Genitourinary: Pelvic Pain (right lower quadrant), Vaginal Bleeding (3 days ago , history c/w miscarriage), No: Decreased Urinary Output, Oliguria Musculoskeletal: No: Limited ROM, Weakness, Cramping, Edema, Pain Skin: No Rash, No Itching, No Dryness, No Lumps, No Change in Pigmentation, No Change in Nails, No Alopecia, No Lesions Neurologic: No: Weakness, Dizziness, Syncope, Focal Abnormalities, Coordination Problem, Headache, Slurred Speech, Seizures Psychiatric: No: Depression, Suicidal Ideations, Homicidal Ideation Endocrine: No: Heat Intolerance, Cold Intolerance, Polydipsia, Polyuria, Other Physical Exam Vital Signs Date Time Temp Pulse Resp B/P Pulse Ox O2 Delivery O2 Flow Rate FiO2 12/25/16 06:34 97.9 77 17 115/74 99 12/25/16 06:12 74 18 100/52 100 12/25/16 05:21 98 12/25/16 04:27 18 12/25/16 01:44 18 12/25/16 01:29 79 18 103/58 99 Room Air 12/24/16 21:41 97.9 88 18 120/53 98 Narrative GENERAL: Well-nourished, well-developed patient. Laying in bed, pleasant, conversant. SKIN: Warm and dry. HEAD: Normocephalic and atraumatic. EYES: No scleral icterus. No injection or drainage. ENT: No nasal drainage noted. Mucous membranes pink. Airway patent. NECK: Supple, trachea midline. No JVD. CARDIOVASCULAR: Regular rate and rhythm without murmurs, gallops, or rubs. RESPIRATORY: Breath sounds equal bilaterally. No accessory muscle use. BREASTS: deferred. ABDOMEN/GI: Abdomen soft, bowel sounds present, TTP low pelvis & RLQ with mild guarding. GENITOURINARY: External Genitalia: intact and normal in appearance BUS glands: [wnl] Cervix: [closed, posterior, firm] +CMT no vaginal bleeding EXTREMITIES: No cyanosis or edema. BACK: Nontender without obvious deformity. NEUROLOGICAL: Awake and alert. Motor and sensory grossly within normal limits. Five out of 5 muscle strength in all muscle groups. Normal speech. Data Data Vital Signs Reviewed: Yes Orders Complete Blood Count With Diff (12/24/16 23:13) Basic Metabolic Panel (Bmp) (12/24/16 23:13) Act Partial Throm Time (Ptt) (12/24/16 23:13) Prothrombin Time / Inr (Pt) (12/24/16 23:13) Type And Screen (12/24/16 23:13) Bhcg Screen Qualitative (12/24/16 23:13) Urinalysis - C+S If Indicated (12/24/16 23:13) Ed Poc Ultrasound (12/25/16 ) Ondansetron Inj (Zofran Inj) (12/25/16 01:15) Morphine Inj (Morphine Inj) (12/25/16 01:15) Ct Abd/Pel W Iv Contrast(Rout) (12/25/16 ) Iohexol 350 Inj (Omnipaque 350 Inj) (12/25/16 02:12) Morphine Inj (Morphine Inj) (12/25/16 04:15) Gc And Chlamydia Pcr (12/25/16 04:21) Wet Prep Profile (12/25/16 04:21) Consult General Surgery (12/25/16 ) Admit Order (Ed Use Only) (12/25/16 04:47) Place In Observation (12/25/16 ) Vital Signs (Adult) Q4H (12/25/16 05:08) Activity Oob Ad Monique (12/25/16 05:08) Intake + Output RICHARD.QSHIFT (12/25/16 05:08) Diet Clear Liquid (12/25/16 Breakfast) Sodium Chloride 0.9% Flush (Ns Flush) (12/25/16 05:15) Sodium Chloride 0.9% Flush (Ns Flush) (12/25/16 09:00) Acetaminophen (Tylenol) (12/25/16 05:15) Ondansetron Inj (Zofran Inj) (12/25/16 05:15) Comprehensive Metabolic Panel (12/26/16 06:00) Complete Blood Count With Diff (12/26/16 06:00) Resp Oxygen Farzad C Titrat 1-4 L (12/25/16 ) Scd Bilateral/Knee High RICHARD.BID (12/25/16 05:08) Naloxone Inj (Narcan Inj) (12/25/16 05:15) Morphine Inj (Morphine Inj) (12/25/16 05:15) Acetamin-Hydrocod 325-5 Mg ([place] 5-325 (12/25/16 06:15) Physician Name Changes (12/25/16 ) (Hub Use Only)Inp Phy Cons/Ref (12/25/16 08:18) Consult Obstetrics (12/25/16 ) ^ Other Nursing Orders (12/25/16 08:54) Lactic Acid (12/25/16 09:00) Piperacil-Tazo 4.5 Gm Premix (Zosyn 4.5 (12/25/16 10:00) Basic Metabolic Panel (Bmp) (12/26/16 06:00) (Hub Use Only)Inp Phy Cons/Ref (12/25/16 ) Bhcg Screen Qualitative (12/25/16 09:19) Us Pelvis (Ques Pr/Ect)W Trans (12/25/16 ) Labs Laboratory Tests Test 12/24/16 12/25/16 12/25/16 21:17 01:00 05:00 White Blood Count 14.0 Red Blood Count 4.64 Hemoglobin 13.3 Hematocrit 40.3 Mean Corpuscular Volume 86.9 Mean Corpuscular Hemoglobin 28.6 Mean Corpuscular Hemoglobin 32.9 Concent Red Cell Distribution Width 13.6 Platelet Count 290 Mean Platelet Volume 8.6 Neutrophils (%) (Auto) 85.4 Lymphocytes (%) (Auto) 9.7 Monocytes (%) (Auto) 4.4 Eosinophils (%) (Auto) 0.2 Basophils (%) (Auto) 0.3 Neutrophils # (Auto) 11.9 Lymphocytes # (Auto) 1.4 Monocytes # (Auto) 0.6 Eosinophils # (Auto) 0.0 Basophils # (Auto) 0.0 CBC Comment DIFF FINAL Differential Comment Prothrombin Time 12.6 Prothromb Time International 1.1 Ratio Activated Partial 29.7 Thromboplast Time Sodium Level 139 Potassium Level 3.7 Chloride Level 104 Carbon Dioxide Level 28.3 Anion Gap 7 Blood Urea Nitrogen 10 Creatinine 0.75 Estimat Glomerular Filtration 114 Rate Random Glucose 87 Calcium Level 9.5 Beta HCG, Qualitative 12 Blood Type A POSITIVE Antibody Screen NEGATIVE Urine Color LIGHT-YELLOW Urine Turbidity CLEAR Urine pH 7.5 Urine Specific [place] 1.008 Urine Protein NEG Urine Glucose (UA) NEG Urine Ketones NEG Urine Occult Blood NEG Urine Nitrite NEG Urine Bilirubin NEG Urine Urobilinogen LESS THAN 2.0 Urine Leukocyte Esterase NEG Urine RBC 2 Urine WBC LESS THAN 1 Urine Squamous Epithelial 5 Cells Urine Bacteria RARE Microscopic Urinalysis Comment CULT NOT INDICATED Clue Cells (Wet Prep) NONE SEEN Vaginal Trichomonas (Wet Prep) NONE SEEN Vaginal Yeast (Wet Prep) NONE SEEN Chlamydia trachomatis DNA NOT DETECTED (PCR) Neisseria gonorrhoeae DNA NOT DETECTED (PCR) Last 24 hours Impressions Abdomen/Pelvis CT 12/25/16 0000 Signed Impressions: Service Date/Time: Sunday, December 25, 2016 02:10 - CONCLUSION: No convincing evidence of appendicitis but I don't clearly see the appendix. No free fluid or other secondary evidence. If clinical concern persists, followup pelvic CT in 12-24 hours with oral contrast is suggested. Jimmy Galarza MD [facility] Medical Record Reviewed: Yes Plan Thank you for this consultation on this pleasant 26 yo patient 26 yo with LMP 10/27/16 with history supportive of spontaneous miscarriage approximately 3 days ago, admitted for RLQ/flank pain and concern for infection, possible appendicitis vs septic . 1) RLQ/pelvic pain: - based on pt's history and decrease in quant beta hcg from >4000 to 12 in comparing results from previous ER visit earlier this month, suspect pt has had a miscarriage. Due to +cervical motion tenderness there is concern for infection, plan pelvic u/s to evaluate possible retained products; - start Zosyn & Doxycycline IV, pt to be NPO in case procedure indicated (D&C), will await sonogram results; pt afebrile currently, may be able to be treated with antibiotics alone but will need imaging to confirm completed AB - if imaging shows no evidence of retained products would plan 24-48h of IV antibiotics and recommend 7d of outpt oral therapy with doxycycline 100mg bid and clindamycin 300mg bid x 7d - pt is RH positive, no indication for Rhogam - vaginal cultures were negative for STI, urine shows no sign of infection - CT shows no free fluid, appendix not visualized; may need addt'l imaging to r/ o appendicitis 2) dispo: -pt not yet meeting d/c criteria - all other recommendations per primary team - if pain persists despite IV antibiotics and retained products are ruled out on sonogram, may need addt'l imaging to r/o appendicitis as on review of CT report appendix not visualized Thank you for this consultation I will continue to follow this patient for additional SWINE EXTENSION FIELD SPECIALIST care. Admitting diagnosis: Possible appendicitis Scripts No Active Prescriptions or Reported Meds Yessy Mason MD Dec 25, 2016 10:01
[2016-12-25] MEDS: SODIUM CHLORIDE 0.9% FLUSH 10 ML FLUSH IV FLUSH SCH ×2 (11:12→19:58)
[2016-12-25] MEDS ORDERED: NEOSTIGMINE 3 MG/3 ML SYR IV ONE (12:20)
[2016-12-25] MEDS ORDERED: PROPOFOL 200 MG/20 ML AMP IV ONE (12:20)
[2016-12-25] MEDS ORDERED: PHENYLEPH/NS 1000 MCG/10 ML SYR IV ONE (12:21)
[2016-12-25] MEDS ORDERED: KETOROLAC TROMETHAMINE 60 MG/2 ML (IM) VIAL IM ONE (12:21)
--- NOTE | 2016-12-25 12:32 | RADRPT ---
EXAM DATE/TIME: 12/25/2016 10:39 [facility] COMPARISON: US PELVIS (QUEST PREG/ECTOPIC) W/TRANSVAG, December 06, 2016, 21:47. INDICATIONS : Pelvic pain and spontaneous . LAB(S): Beta-hC MEDICAL HISTORY : Ovarian cysts. SURGICAL HISTORY : None. ENCOUNTER: Subsequent ACUITY: 3 days PAIN SCORE: 3/10 LOCATION: Right pelvis MEASUREMENTS: UTERUS: 7.3 x 3.7 x 6.3 cm ENDOMETRIAL STRIPE: 7 mm RIGHT OVARY: 3.2 x 2.1 x 2.4 cm LEFT OVARY: 3.3 x 1.5 x 1.6 cm FREE FLUID: Yes cul-de-sac. CROWN RUMP LENGTH: Not visualized. = WKS DAYS FHR: Not visualized. BPM FINDINGS: UTERUS: No intrauterine gestational sac identified. Endometrial stripe is homogeneous. Nabothian cyst noted i n the cervix. RIGHT OVARY: Ovary contains no mass or significant cystic lesion. LEFT OVARY: Ovary contains no mass or significant cystic lesion. MISCELLANEOUS: Trace free fluid. CONCLUSION: 1. No gestational sac seen in the uterus. No retained products of conception identified in the uterus . 2. Trace free fluid in the pelvis. 3. Ovaries within normal limits. Rodriguez Bunch MD on December 25, 2016 at 12:28 Board Certified Radiologist. This report was verified electronically.
[2016-12-25] MEDS: DOXYCYCLINE INJ 100 MG in SODIUM CHLORIDE 0.9% INJ 100 ML IV SCH ×2 (12:55→23:22)
--- NOTE | 2016-12-25 13:14 | HHI.PR ---
ASSOCIATE PROJECT MANAGER Note Note Addendum to OBGYN Consult note 12/25/16: Pelvic ultrasound reviewed, no evidence of retained POC. Completed spontaneous . Normal uterus & adnexa. At this time continue with plan of care with IV antibiotics until other source of pain/infection ruled out. Defer any further care to primary team. Still recommend 7 days of doxy & clinda oral antibiotics as outpatient due to cervical motion tenderness on exam. 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 Yessy Mason MD Dec 25, 2016 13:14
--- NOTE | 2016-12-25 14:41 | PD.CONS ---
HPI Service General Surgery Consult Requested By Dr. Chacon Reason for Consult Possible appendicitis Primary Care Physician Non-Staff History of Present Illness 26 yo F who had a spontaneous three days ago developed severe mid abdominal pain now localized in the RLQ and pelvis yesterday afternoon. She had dry heaving and anorexia. She had elevated WBC and appendix was not visualized on CT a/p. She was evaluated by Dr. Mason DIET CLERK and pelvic u/s was performed - there is no evidence for any retained products in the uterus. The patient tells me the pain persists and she has never had pain like this in the past. Review of Systems Constitutional: DENIES: Fever, Chills Eyes: DENIES: Eye inflammation, Eye pain Respiratory: DENIES: Cough, Wheezing Cardiovascular: DENIES: Chest pain, Palpitations Gastrointestinal: COMPLAINS OF: Abdominal pain, Nausea Integumentary: DENIES: Pruritus, Rash Neurologic: DENIES: Headache, Localized weakness Past Family Social History Past Medical History None Past Surgical History None Reported Medications None Allergies: Coded Allergies: No Known Allergies (Unverified , 12/24/16) Active Ordered Medications Current Medications Medications (Trade) Dose Ordered Sig/Rod Route Start Time Stop Time Status Last Admin (NS Flush) 2 ml UNSCH PRN IV FLUSH 12/25/16 05:15 (NS Flush) 2 ml BID IV FLUSH 12/25/16 09:00 12/25/16 11:12 (Tylenol) 650 mg Q4H PRN PO 12/25/16 05:15 (Zofran Inj) 4 mg Q6H PRN IVP 12/25/16 05:15 (Narcan Inj) 0.4 mg UNSCH PRN IV 12/25/16 05:15 (Morphine Inj) 2 mg Q4H PRN IV PUSH 12/25/16 05:15 Acetaminophen/ Hydrocodone Bitart 1 tab 1 tab Q4H PRN PO 12/25/16 06:15 12/25/16 11:11 Doxycycline Hyclate 100 mg/ Sodium Chloride 100 ml @ 100 mls/hr Q12H IV 12/25/16 11:00 12/25/16 12:55 (Zosyn 4.5 Gm Premix) 100 ml @ 200 mls/hr Q6HR IV 12/25/16 18:00 Family History Noncontributory Social History Denies drug or tobacco use. Rare ETOH. Physical Exam Vital Signs Vital Signs Date Time Temp Pulse Resp B/P Pulse Ox O2 Delivery O2 Flow Rate FiO2 12/25/16 11:54 96.3 72 16 109/55 100 12/25/16 08:05 96.8 87 16 110/53 97 12/25/16 06:34 97.9 77 17 115/74 99 12/25/16 06:12 74 18 100/52 100 12/25/16 05:21 98 12/25/16 04:27 18 12/25/16 01:44 18 12/25/16 01:29 79 18 103/58 99 Room Air 12/24/16 21:41 97.9 88 18 120/53 98 Physical Exam Gen: NAD, well developed well nourished HEENT: PERRLA, moist oral mucosa Neck: supple, trachea midline Pulm: CTAB CV: RRR Abd: soft, nondistended. Mod-severe ttp RLQ and upper pelvis. ? rebound no guarding. Skin: warm, dry, many tattoos Laboratory Laboratory Tests Test 12/24/16 12/25/16 12/25/16 12/25/16 21:17 01:00 05:00 11:30 White Blood Count 14.0 Red Blood Count 4.64 Hemoglobin 13.3 Hematocrit 40.3 Mean Corpuscular Volume 86.9 Mean Corpuscular Hemoglobin 28.6 Mean Corpuscular Hemoglobin 32.9 Concent Red Cell Distribution Width 13.6 Platelet Count 290 Mean Platelet Volume 8.6 Neutrophils (%) (Auto) 85.4 Lymphocytes (%) (Auto) 9.7 Monocytes (%) (Auto) 4.4 Eosinophils (%) (Auto) 0.2 Basophils (%) (Auto) 0.3 Neutrophils # (Auto) 11.9 Lymphocytes # (Auto) 1.4 Monocytes # (Auto) 0.6 Eosinophils # (Auto) 0.0 Basophils # (Auto) 0.0 CBC Comment DIFF FINAL Differential Comment Prothrombin Time 12.6 Prothromb Time International 1.1 Ratio Activated Partial 29.7 Thromboplast Time Sodium Level 139 Potassium Level 3.7 Chloride Level 104 Carbon Dioxide Level 28.3 Anion Gap 7 Blood Urea Nitrogen 10 Creatinine 0.75 Estimat Glomerular Filtration 114 Rate Random Glucose 87 Calcium Level 9.5 Beta HCG, Qualitative 12 9 Blood Type A POSITIVE Antibody Screen NEGATIVE Urine Color LIGHT-YELLOW Urine Turbidity CLEAR Urine pH 7.5 Urine Specific [place] 1.008 Urine Protein NEG Urine Glucose (UA) NEG Urine Ketones NEG Urine Occult Blood NEG Urine Nitrite NEG Urine Bilirubin NEG Urine Urobilinogen LESS THAN 2.0 Urine Leukocyte Esterase NEG Urine RBC 2 Urine WBC LESS THAN 1 Urine Squamous Epithelial 5 Cells Urine Bacteria RARE Microscopic Urinalysis Comment CULT NOT INDICATED Clue Cells (Wet Prep) NONE SEEN Vaginal Trichomonas (Wet Prep) NONE SEEN Vaginal Yeast (Wet Prep) NONE SEEN Chlamydia trachomatis DNA NOT DETECTED (PCR) Neisseria gonorrhoeae DNA NOT DETECTED (PCR) Lactic Acid Level 1.2 Result Diagram: 12/24/16211612/24/162116 Imaging Last Impressions Pelvis Ultrasound 12/25/16 0000 Signed Impressions: Service Date/Time: Sunday, December 25, 2016 10:39 - CONCLUSION: 1. No gestational sac seen in the uterus. No retained products of conception identified in the uterus. 2. Trace free fluid in the pelvis. 3. Ovaries within normal limits. Rodriguez Bunch MD Abdomen/Pelvis CT 12/25/16 0000 Signed Impressions: Service Date/Time: Sunday, December 25, 2016 02:10 - CONCLUSION: No convincing evidence of appendicitis but I don't clearly see the appendix. No free fluid or other secondary evidence. If clinical concern persists, followup pelvic CT in 12-24 hours with oral contrast is suggested. Jimmy Galarza MD Assessment and Plan Assessment and Plan 26 yo F with recent spontaneous and possible appendicitis. I discussed options of continued observation, repeat CT a/p, or appendectomy. I recommend repeat CT at this time and she is in agreement. If this confirms appendicitis, will proceed to OR tonight. Oscar Chavez MD Dec 25, 2016 14:41
[2016-12-25] MEDS ORDERED: DIATRIZOATE MEGLUM/DIATRIZOATE SOD 9 ML CUP PO ONE (15:15)
[2016-12-25] MEDS: PIPERACIL-TAZO 4.5 GM PREMIX 100 ML IV SCH ×2 (17:32→23:45)
--- NOTE | 2016-12-25 18:29 | RADRPT ---
EXAM DATE/TIME: 12/25/2016 17:54 [facility] COMPARISON: CT ABDOMEN & PELVIS W/O CONTRAST, April 28, 2016, 11:03. CT ABDOMEN & PE LVIS W CONTRAST, December 25, 2016, 2:10. INDICATIONS : Right lower quadrant pain; rule out appendicitis. IV CONTRAST: 98 cc Omnipaque 350 (iohexol) IV ORAL CONTRAST: Prescribed oral contrast ingested. RADIATION DOSE: 19.42 CTDIvol (mGy) MEDICAL HISTORY : ovarian cysts SURGICAL HISTORY : None. ENCOUNTER: Subsequent ACUITY: 2 days PAIN SCALE: 7/10 LOCATION: abdomen TECHNIQUE: Volumetric scanning of the abdomen and pelvis was performed. Using automated exposure control and adjustment of the mA and/or kV according to patient size, radiation dose was kept as low as reasonably achievable to obtain optimal diagnostic quality images. FINDINGS: CT Abdomen: The liver, spleen, pancreas, kidneys, adrenals are unremarkable. There is no evidence for any appreciable pathological adenopathy, free fluid, or bowel obstruction. CT pelvis: There is no evidence for mass, abscess formation, or any significant adenopathy within the pelvis. The terminal ileum is not filled with oral contrast and there is a tubular structure adjacen t to the terminal ileum may be a dilated appendix versus a loop of bowel and distinction is very diff icult.. CONCLUSION: Questionable appendicitis. Juan M Graham MD on December 25, 2016 at 18:21 Board Certified Radiologist. This report was verified electronically.
--- NOTE | 2016-12-25 18:37 | HHI.PR ---
Subjective Subjective Notes Repeat CT performed. I spoke with Dr. Graham and there does appear to be a dilated appendix although it is not completely confirmatory. Her evaluation is c/w appendicitis and I recommend to proceed to the OR. I discussed findings and recs with the patient as well as risks and details of the procedure and she desires to proceed. Oscar Chavez MD Dec 25, 2016 18:37
[2016-12-25 20:10] LABS: AUTOMATED NEUTROPHIL # 6.4 TH/MM3 (1.8-7.7); BASOPHIL # 0.1 TH/MM3 (0-0.2); BASOPHIL % 0.5 % (0.0-2.0); EOSINOPHIL # 0.1 TH/MM3 (0-0.4); EOSINOPHIL % 1.3 % (0.0-4.0); HEMATOCRIT 37.5 % (35.0-46.0); HEMO FLAGS DIFF FINAL; LYMPH % 25.7 % (9.0-44.0); LYMPHOCYTE # 2.5 TH/MM3 (1.0-4.8); MEAN CORPUSCULAR HEMOGLOBIN 29.6 PG (27.0-34.0); MONO % 6.2 % (0.0-8.0); NEUT % 66.3 % (16.0-70.0); PLATELET COUNT 289 TH/MM3 (150-450); RED BLOOD COUNT 4.31 MIL/MM3 (4.00-5.30); RED CELL DISTRIBUTION WIDTH 13.7 % (11.6-17.2); WHITE BLOOD COUNT 9.6 TH/MM3 (4.0-11.0)
[2016-12-25] MEDS ORDERED: DO NOT ADM ANY ANTICOAGULANT DRUGS PRN (20:25)
[2016-12-25] MEDS ORDERED: LACTATED RINGER'S 1000 ML IV PRN (20:30)
[2016-12-25] MEDS ORDERED: SODIUM CHLORID 0.9% 500 ML IV PRN (20:30)
[2016-12-25] MEDS ORDERED: POVIDONE IODINE 5% (ANTISEPSIS KIT) 4 APPLICATIONS EACH NARE PRN (20:30)
[2016-12-25] MEDS ORDERED: CHLORHEXIDINE GLUCONATE 2 % 1 PACK (2 CLOTHS) TOPICAL PRN (20:30)
[2016-12-25] MEDS ORDERED: INSULIN HUMAN REGULAR 1,000 UNITS/10 ML VIAL SQ PRN (20:30)
[2016-12-25] MEDS ORDERED: METOPROLOL TARTRATE 25 MG TAB PO PRN (20:30)
[2016-12-25] MEDS ORDERED: BUPIVACAINE/EPINEPHRINE 0.25% PF 30 ML VIAL ONE (22:03)
[2016-12-25] MEDS ORDERED: ACETAMINOPHEN 1000 MG/100 ML VIAL IV ONE (22:09)
[2016-12-25] MEDS ORDERED: fentaNYL CITRATE 250 MCG/5 ML AMP ONE (22:09)
[2016-12-25] MEDS: SODIUM CHLOR 0.9% 1000 ML INJ 1,000 ML IV SCH (23:15)
--- NOTE | 2016-12-25 23:20 | PD.OP ---
cc: Yessy Mason MD; Scott,Oscar WATERS Operative Report Date of Surgery: Dec 25, 2016 Preoperative Diagnosis: (1) Acute appendicitis Postoperative Diagnosis: (1) Acute appendicitis Procedure: Laparoscopic appendectomy Anesthesia: GETA Surgeon: Oscar Chavez Bookkeeping Manager(s): Suresh CARRERA Operation and Findings: EBL: 5 cc Complications: None apparent Operative findings: The patient had mild inflammation and distention of the appendix. No purulence or exudate. I will await pathology to reveal if she truly had appendicitis. The ovaries and fallopian tubes appeared normal as well as the uterus except for some scarring. The terminal ileum was normal and the distal 2 or 3 feet of small bowel was normal. I saw no other intra- abdominal abnormalities. Procedure in detail: The patient was taken to the operating room placed in the supine position with left arm tucked. General endotracheal anesthesia was induced and the abdomen was prepped and draped in usual sterile fashion. Surgical timeout was performed to verify correct patient procedure and site. Perioperative antibiotics were administered as necessary. Local anesthetic was injected in the skin and subcutaneous tissue at the left lower abdomen and a 5 mm incision made. Using the 5 mm Optiview trocar with laparoscope the abdomen was directly entered. Was then insufflated to 15 mmHg with CO2 gas which the patient tolerated well. The patient was then placed in Trendelenburg position and turned slightly to the left. A 12 mm port was placed under laparoscopic visualization in the suprapubic area and a 5 mm port to the left of the umbilicus. Attention was turned to the right lower quadrant and the appendix was mildly inflamed and distended. It was not clear if appendicitis was the cause of her abdominal pain however I did elect to proceed with appendectomy.. The mesoappendix was taken down with the Harmonic scalpel. Two #1 PDS Endoloops were placed at the base the appendix and the appendix transected with Harmonic scalpel. It was then removed using an Endo Catch bag. The appendiceal stump was intact with no leakage. The ovaries and fallopian tubes and uterus appeared normal. The terminal ileum and distal 3 feet of ileum was normal. The sigmoid colon appeared normal. I did not notice any other abnormalities. There was no purulent fluid identified in the abdomen was allowed to desufflate. The fascia at the 12 mm port site was closed with a single 0 Vicryl suture. Skin closed with subcuticular Monocryl as well as Dermabond. The patient tolerated the procedure well was extubated and taken to PACU in stable condition. Oscar Chavez MD Dec 25, 2016 23:19
[2016-12-26 00:48] VITALS: BP 102/58; PULSE 66; RESP 17; TEMP 96.9; O2SAT 99
[2016-12-26] MEDS: ACETAMINOPHEN/HYDROcodone 325 MG/5 MG TAB PO PRN ×5 (01:21→21:56)
[2016-12-26 04:09] VITALS: BP 94/48; PULSE 60; RESP 18; TEMP 96; O2SAT 97
[2016-12-26] MEDS: PIPERACIL-TAZO 4.5 GM PREMIX 100 ML IV SCH ×3 (05:59→17:39)
[2016-12-26 07:33] VITALS: BP 98/53; PULSE 53; RESP 16; TEMP 96.9; O2SAT 98
[2016-12-26 07:34] LABS: AUTOMATED NEUTROPHIL # 7.6 TH/MM3 (1.8-7.7); BASOPHIL % 0.1 % (0.0-2.0); HEMATOCRIT 35.6 % (35.0-46.0); HEMO FLAGS DIFF FINAL; LYMPH % 8.5 % (9.0-44.0); LYMPHOCYTE # 0.7 TH/MM3 (1.0-4.8); MEAN CELL VOLUME 86.8 FL (80.0-100.0); MEAN CORPUSCULAR HGB CONC 33.4 % (32.0-36.0); MONO % 2.6 % (0.0-8.0); NEUT % 88.8 % (16.0-70.0); PLATELET COUNT 280 TH/MM3 (150-450); RED CELL DISTRIBUTION WIDTH 13.8 % (11.6-17.2); WHITE BLOOD COUNT 8.6 TH/MM3 (4.0-11.0)
[2016-12-26 08:17] LABS: ALKALINE PHOSPHATASE 77 U/L (45-117); ALT (GPT) 16 U/L (10-53); ANION GAP 8 MEQ/L (5-15); AST (GOT) 18 U/L (15-37); BICARBONATE 25.9 MEQ/L (21.0-32.0); BLOOD UREA NITROGEN 10 MG/DL (7-18); CHLORIDE 103 MEQ/L (98-107); GLOMERULAR FILTRATION RATE 92 ML/MIN (>89); POTASSIUM 4.2 MEQ/L (3.5-5.1); SODIUM (NA) 137 MEQ/L (136-145); TOTAL BILIRUBIN ADULT 0.5 MG/DL (0.2-1.0)
[2016-12-26] MEDS: SODIUM CHLOR 0.9% 1000 ML INJ 1,000 ML IV SCH ×2 (11:10→17:39)
[2016-12-26 11:57] VITALS: BP 97/54; PULSE 60; RESP 16; TEMP 96.5; O2SAT 99
--- NOTE | 2016-12-26 12:22 | HHI.PR ---
Objective Vitals Vital Signs Date Time Temp Pulse Resp B/P Pulse Ox O2 Delivery O2 Flow Rate FiO2 12/26/16 07:33 96.9 53 16 98/53 98 12/26/16 04:09 96.0 60 18 94/48 97 12/26/16 00:48 96.9 66 17 102/58 99 12/26/16 00:00 98.0 63 14 111/56 100 Room Air 12/25/16 23:45 64 14 107/57 100 Nasal Cannula 12/25/16 23:30 61 12 103/57 100 Nasal Cannula 3 12/25/16 23:25 98.4 62 16 109/58 100 Nasal Cannula 3 12/25/16 22:34 98.8 75 20 12/25/16 20:19 97.0 74 17 106/62 96 12/25/16 19:11 Room Air 12/25/16 18:31 98 21 12/25/16 16:00 97.7 75 16 102/57 98 I/O 12/25/16 12/25/16 12/25/16 12/26/16 12/26/16 12/26/16 07:00 15:00 23:00 07:00 15:00 23:00 Intake Total 1200 ml 120 ml 1334 ml Output Total 10 ml Balance 1200 ml 120 ml 1324 ml Intake Oral 1200 ml 120 ml 410 ml IV Total 474 ml Other 450 ml Output Urine Total 0 ml Estimated Blood Loss 10 ml # Voids 2 2 1 # Bowel Movements 0 0 0 Result Diagram: 12/26/16 0647 12/26/16 0647 A/P Problem List: (1) Abdominal pain ICD Code: R10.9 Status: Acute Problem Qualifiers (1) Abdominal pain: Qualified Code: R10.31 - Right lower quadrant abdominal pain Devante Capone MD December 26, 2016 12:22
[2016-12-26] MEDS: DOXYCYCLINE INJ 100 MG in SODIUM CHLORIDE 0.9% INJ 100 ML IV SCH ×2 (12:49→21:58)
[2016-12-26] MEDS: SODIUM CHLORIDE 0.9% FLUSH 10 ML FLUSH IV FLUSH SCH ×2 (12:49→21:00)
--- NOTE | 2016-12-26 12:51 | HHI.PR ---
Subjective Subjective Notes Preop pain significantly better. Tolerating diet. Objective Vitals/I&O Vital Signs Date Time Temp Pulse Resp B/P Pulse Ox O2 Delivery O2 Flow Rate FiO2 12/26/16 11:57 96.5 60 16 97/54 99 12/26/16 00:00 Room Air 12/25/16 23:30 3 12/25/16 18:31 21 Labs Laboratory Tests Test 12/25/16 12/26/16 19:16 06:47 White Blood Count 9.6 8.6 Red Blood Count 4.31 4.10 Hemoglobin 12.7 11.9 Hematocrit 37.5 35.6 Mean Corpuscular Volume 87.0 86.8 Mean Corpuscular Hemoglobin 29.6 29.0 Mean Corpuscular Hemoglobin 34.0 33.4 Concent Red Cell Distribution Width 13.7 13.8 Platelet Count 289 280 Mean Platelet Volume 8.4 8.4 Neutrophils (%) (Auto) 66.3 88.8 Lymphocytes (%) (Auto) 25.7 8.5 Monocytes (%) (Auto) 6.2 2.6 Eosinophils (%) (Auto) 1.3 0.0 Basophils (%) (Auto) 0.5 0.1 Neutrophils # (Auto) 6.4 7.6 Lymphocytes # (Auto) 2.5 0.7 Monocytes # (Auto) 0.6 0.2 Eosinophils # (Auto) 0.1 0.0 Basophils # (Auto) 0.1 0.0 CBC Comment DIFF FINAL DIFF FINAL Differential Comment Sodium Level 137 Potassium Level 4.2 Chloride Level 103 Carbon Dioxide Level 25.9 Anion Gap 8 Blood Urea Nitrogen 10 Creatinine 0.90 Estimat Glomerular Filtration 92 Rate Random Glucose 109 Calcium Level 9.1 Total Bilirubin 0.5 Aspartate Amino Transf 18 (AST/SGOT) Alanine Aminotransferase 16 (ALT/SGPT) Alkaline Phosphatase 77 Total Protein 7.3 Albumin 3.4 Radiology Last Impressions Pelvis Ultrasound 12/25/16 0000 Signed Impressions: Service Date/Time: Sunday, December 25, 2016 10:39 - CONCLUSION: 1. No gestational sac seen in the uterus. No retained products of conception identified in the uterus. 2. Trace free fluid in the pelvis. 3. Ovaries within normal limits. Rodriguez Bunch MD Abdomen/Pelvis CT 12/25/16 0000 Signed Impressions: Service Date/Time: Sunday, December 25, 2016 02:10 - CONCLUSION: No convincing evidence of appendicitis but I don't clearly see the appendix. No free fluid or other secondary evidence. If clinical concern persists, followup pelvic CT in 12-24 hours with oral contrast is suggested. Jimmy Galarza MD Narrative Exam Abd: soft, nontender except at incision sites; inc c/d/i A/P Assessment and Plan 26 yo F POD 1 lap appy, also s/p recent spontaneous Clear for dc from my standpoint. 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 Scott,Oscar WATERS December 26, 2016 12:51
[2016-12-26] MEDS ORDERED: HYDR-3516 PO (12:52)
[2016-12-26 15:20] VITALS: BP 95/52; PULSE 72; RESP 16; TEMP 97.6; O2SAT 100
[2016-12-26 15:21] LABS: AUTOMATED NEUTROPHIL # 8.3 TH/MM3 (1.8-7.7); BASOPHIL % 0.4 % (0.0-2.0); EOSINOPHIL % 0.4 % (0.0-4.0); HEMATOCRIT 36.5 % (35.0-46.0); HEMO FLAGS DIFF FINAL; LYMPH % 17.2 % (9.0-44.0); LYMPHOCYTE # 1.9 TH/MM3 (1.0-4.8); MEAN CORPUSCULAR HEMOGLOBIN 29.1 PG (27.0-34.0); MEAN CORPUSCULAR HGB CONC 33.5 % (32.0-36.0); MONO % 5.3 % (0.0-8.0); NEUT % 76.7 % (16.0-70.0); PLATELET COUNT 290 TH/MM3 (150-450); RED CELL DISTRIBUTION WIDTH 13.5 % (11.6-17.2); WHITE BLOOD COUNT 10.8 TH/MM3 (4.0-11.0)
--- NOTE | 2016-12-26 15:45 | HHI.PR ---
Subjective Remarks Patient doing well post appendectomy laparoscopy Afebrile, still having pain blood pressure on the lower side Objective Vitals Vital Signs Date Time Temp Pulse Resp B/P Pulse Ox O2 Delivery O2 Flow Rate FiO2 12/26/16 11:57 96.5 60 16 97/54 99 12/26/16 07:33 96.9 53 16 98/53 98 12/26/16 04:09 96.0 60 18 94/48 97 12/26/16 00:48 96.9 66 17 102/58 99 12/26/16 00:00 98.0 63 14 111/56 100 Room Air 12/25/16 23:45 64 14 107/57 100 Nasal Cannula 12/25/16 23:30 61 12 103/57 100 Nasal Cannula 3 12/25/16 23:25 98.4 62 16 109/58 100 Nasal Cannula 3 12/25/16 22:34 98.8 75 20 12/25/16 20:19 97.0 74 17 106/62 96 12/25/16 19:11 Room Air 12/25/16 18:31 98 21 12/25/16 16:00 97.7 75 16 102/57 98 I/O 12/25/16 12/25/16 12/25/16 12/26/16 12/26/16 12/26/16 07:00 15:00 23:00 07:00 15:00 23:00 Intake Total 1200 ml 120 ml 1334 ml Output Total 10 ml Balance 1200 ml 120 ml 1324 ml Intake Oral 1200 ml 120 ml 410 ml IV Total 474 ml Other 450 ml Output Urine Total 0 ml Estimated Blood Loss 10 ml # Voids 2 2 1 # Bowel Movements 0 0 0 Result Diagram: 12/26/16 1452 12/26/16 0647 Objective Remarks GENERAL: This is a well-nourished, well-developed patient, in no apparent distress. SKIN: No rashes, warm and dry HEAD: Atraumatic. Normocephalic. EYES: Pupils equal round and reactive. Extraocular motions intact. No scleral icterus. ENT: Nose without bleeding, or drainage, Airway patent. NECK: Trachea midline. Supple CARDIOVASCULAR: Regular rate and rhythm without murmurs, gallops, or rubs. RESPIRATORY: Fair air entry bilaterally. No wheezes, rales, or rhonchi. GASTROINTESTINAL: Abdomen soft, minimal tenderness to palpation, nondistended. Positive bowel sounds MUSCULOSKELETAL: Extremities without clubbing, cyanosis, or edema. Pedal pulses appreciated NEUROLOGICAL: Awake and alert. Moves all extremity. Normal speech.no focal neurological deficit A/P Problem List: (1) Abdominal pain ICD Code: R10.9 Status: Acute Assessment and Plan 26 years old female admitted with : Severe abdominal pain due to appendicitis status post laparoscopy appendectomy History of recent miscarriage (vaginal bleed ") with beta-hCG dropped from 4000- 12 Plan: Patient status post laparoscopy appendectomy Still in pain with hypotension will continue on iv fluid and monitor overnight Appreciate GS and FIRE PREVENTION BUREAU CAPTAIN consultation Status post intravaginal ultrasound unremarkable for any remnant gestation Continue Zosyn and doxycycline per FIRE PREVENTION BUREAU CAPTAIN recommendation prophylactically Discharge possibly tomorrow if blood pressure improved along with pain Problem Qualifiers (1) Abdominal pain: Qualified Code: R10.31 - Right lower quadrant abdominal pain Devante Capone MD December 26, 2016 15:45
[2016-12-26 20:00] VITALS: BP 91/55; PULSE 69; RESP 17; TEMP 97.4; O2SAT 100
[2016-12-27] VITALS: BP 93/63; PULSE 63; RESP 16; TEMP 97.5; O2SAT 99
[2016-12-27] MEDS: PIPERACIL-TAZO 4.5 GM PREMIX 100 ML IV SCH ×3 (00:10→11:35)
[2016-12-27] MEDS: ACETAMINOPHEN/HYDROcodone 325 MG/5 MG TAB PO PRN ×2 (03:21→08:55)
[2016-12-27 04:00] VITALS: BP 82/53; PULSE 60; RESP 16; TEMP 97.3; O2SAT 98
[2016-12-27 08:04] VITALS: BP 90/56; PULSE 64; RESP 16; TEMP 96; O2SAT 99
[2016-12-27] MEDS: SODIUM CHLORIDE 0.9% FLUSH 10 ML FLUSH IV FLUSH SCH (08:54)
[2016-12-27] MEDS: SODIUM CHLOR 0.9% 1000 ML INJ 1,000 ML IV SCH (08:54)
--- NOTE | 2016-12-27 10:06 | HHI.PR ---
Subjective Subjective Notes BP has continued to be a little low. She feels a little weak and tired. Denies abdominal pain. Having some oral diet without problem. Objective Vitals/I&O Vital Signs Date Time Temp Pulse Resp B/P Pulse Ox O2 Delivery O2 Flow Rate FiO2 12/27/16 08:04 96.0 64 16 90/56 99 12/26/16 18:57 Room Air 12/25/16 23:30 3 12/25/16 18:31 21 Labs Laboratory Tests Test 12/26/16 14:52 White Blood Count 10.8 Red Blood Count 4.20 Hemoglobin 12.2 Hematocrit 36.5 Mean Corpuscular Volume 87.0 Mean Corpuscular Hemoglobin 29.1 Mean Corpuscular Hemoglobin 33.5 Concent Red Cell Distribution Width 13.5 Platelet Count 290 Mean Platelet Volume 8.5 Neutrophils (%) (Auto) 76.7 Lymphocytes (%) (Auto) 17.2 Monocytes (%) (Auto) 5.3 Eosinophils (%) (Auto) 0.4 Basophils (%) (Auto) 0.4 Neutrophils # (Auto) 8.3 Lymphocytes # (Auto) 1.9 Monocytes # (Auto) 0.6 Eosinophils # (Auto) 0.0 Basophils # (Auto) 0.0 CBC Comment DIFF FINAL Differential Comment Radiology Last Impressions Pelvis Ultrasound 12/25/16 0000 Signed Impressions: Service Date/Time: Sunday, December 25, 2016 10:39 - CONCLUSION: 1. No gestational sac seen in the uterus. No retained products of conception identified in the uterus. 2. Trace free fluid in the pelvis. 3. Ovaries within normal limits. Rodriguez Bunch MD Abdomen/Pelvis CT 12/25/16 0000 Signed Impressions: Service Date/Time: Sunday, December 25, 2016 02:10 - CONCLUSION: No convincing evidence of appendicitis but I don't clearly see the appendix. No free fluid or other secondary evidence. If clinical concern persists, followup pelvic CT in 12-24 hours with oral contrast is suggested. Jimmy Galarza MD Narrative Exam Abd: soft, nontender except at incision sites; inc c/d/i A/P Assessment and Plan 26 yo F POD 2 lap appy, also s/p recent spontaneous Continues to do well from surgical standpoint, although BP is marginal for unknown reason. I do not suspect any surgical complication. Will leave dc planning to medical team. ScottOscar MD December 27, 2016 10:06
[2016-12-27] MEDS ORDERED: DOXY100C PO (10:44)
[2016-12-27] MEDS ORDERED: CLIN1CAP6 PO (10:44)
[2016-12-27] MEDS: DOXYCYCLINE INJ 100 MG in SODIUM CHLORIDE 0.9% INJ 100 ML IV SCH (11:30)
[2016-12-27 12:02] VITALS: BP 91/59; PULSE 68; RESP 16; TEMP 97.2; O2SAT 98
--- NOTE | 2016-12-27 12:38 | HHI.PR ---
Subjective Remarks Doing well postop Still having soreness in the abdomen but much better than before, Afebrile Objective Vitals Vital Signs Date Time Temp Pulse Resp B/P Pulse Ox O2 Delivery O2 Flow Rate FiO2 12/27/16 12:02 97.2 68 16 91/59 98 12/27/16 10:30 Room Air 12/27/16 08:04 96.0 64 16 90/56 99 12/27/16 04:00 97.3 60 16 82/53 98 12/27/16 00:00 97.5 63 16 93/63 99 12/26/16 20:00 97.4 69 17 91/55 100 12/26/16 18:57 Room Air 12/26/16 15:20 97.6 72 16 95/52 100 I/O 12/26/16 12/26/16 12/26/16 12/27/16 12/27/16 12/27/16 07:00 15:00 23:00 07:00 15:00 23:00 Intake Total 1334 ml 720 ml 648 ml 611 ml Output Total 10 ml Balance 1324 ml 720 ml 648 ml 611 ml Intake Oral 410 ml 720 ml 240 ml 240 ml IV Total 474 ml 408 ml 371 ml Other 450 ml Output Urine Total 0 ml Estimated Blood Loss 10 ml # Voids 1 4 1 1 # Bowel Movements 0 0 0 0 Result Diagram: 12/26/16 1452 12/26/16 0647 Objective Remarks GENERAL: This is a well-nourished, well-developed patient, in no apparent distress. SKIN: No rashes, warm and dry HEAD: Atraumatic. Normocephalic. EYES: Pupils equal round and reactive. Extraocular motions intact. No scleral icterus. ENT: Nose without bleeding, or drainage, Airway patent. NECK: Trachea midline. Supple CARDIOVASCULAR: Regular rate and rhythm without murmurs, gallops, or rubs. RESPIRATORY: Fair air entry bilaterally. No wheezes, rales, or rhonchi. GASTROINTESTINAL: Abdomen soft, minimal tenderness to palpation, nondistended. Positive bowel sounds MUSCULOSKELETAL: Extremities without clubbing, cyanosis, or edema. Pedal pulses appreciated NEUROLOGICAL: Awake and alert. Moves all extremity. Normal speech.no focal neurological deficit A/P Problem List: (1) Abdominal pain ICD Code: R10.9 Status: Acute Assessment and Plan 26 years old female admitted with : Severe abdominal pain due to appendicitis status post laparoscopy appendectomy History of recent miscarriage (vaginal bleed ") with beta-hCG dropped from 4000- 12 Plan: Patient status post laparoscopy appendectomy Still in pain with hypotension will continue on iv fluid and monitor overnight Appreciate GS and CORRECTIONAL MEDICINE PHYSICIAN consultation Status post intravaginal ultrasound unremarkable for any remnant gestation Continue Zosyn and doxycycline per CORRECTIONAL MEDICINE PHYSICIAN recommendation prophylactically Discharge possibly tomorrow if blood pressure improved along with pain Problem Qualifiers (1) Abdominal pain: Qualified Code: R10.31 - Right lower quadrant abdominal pain Devante Capone MD December 27, 2016 12:38
--- NOTE | 2016-12-28 10:10 | HHI.DS ---
Discharge Summary Admission Date Dec 25, 2016 at 04:48 Discharge Date: December 27, 2016 Admitting Diagnosis Possible appendicitis (1) Abdominal pain ICD Code: R10.9 Procedures Laparoscopy appendectomy Brief History - From Admission This is a 26 year old female patient who denies prior medical history. Patient is presents to the ED with c/o abdominal pain that started about 3pm for 0.2016. Pain started periumbilical with radiation to the back and now pain is located in the right lower abdominal quadrant. Patient reports the abdominal pain is decreased with the morphine given in emergency department. Abdominal pain worse with palpation. Patient reports associated nausea vomiting and chills. Pt had vaginal bleeding with clots 3 days ago that has spontaneously resolved. Pt was seen here on 12/06/16 for first trimester bleeding and had bHCG 4879. US at the time showed probably early gestational sac without yolk sac or pole. Complex cystic lesion in right ovary measuring 2.0 may be related to corpus luteus cyst. bHCG at this time is 12. Patient denies chest pain or shortness of breath. CT of abdomen and pelvis reveals: No convincing evidence of appendicitis but I don't clearly see the appendix. No free fluid or other secondary evidence. If clinical concern persists, followup pelvic CT in 12-24 hours with oral contrast is suggested CBC/BMP: 12/26/16 1452 12/26/16 0647 Significant Findings Laboratory Tests Test 12/25/16 12/26/16 12/26/16 11:30 06:47 14:52 Beta HCG, Qualitative 9 MIU/ML (0-5) Neutrophils (%) (Auto) 88.8 % 76.7 % (16.0-70.0) (16.0-70.0) Lymphocytes (%) (Auto) 8.5 % (9.0-44.0) Lymphocytes # (Auto) 0.7 TH/MM3 (1.0-4.8) Random Glucose 109 MG/DL (74-106) Neutrophils # (Auto) 8.3 TH/MM3 (1.8-7.7) PE at Discharge GENERAL: This is a well-nourished, well-developed patient, in no apparent distress. SKIN: No rashes, warm and dry HEAD: Atraumatic. Normocephalic. EYES: Pupils equal round and reactive. Extraocular motions intact. No scleral icterus. ENT: Nose without bleeding, or drainage, Airway patent. NECK: Trachea midline. Supple CARDIOVASCULAR: Regular rate and rhythm without murmurs, gallops, or rubs. RESPIRATORY: Fair air entry bilaterally. No wheezes, rales, or rhonchi. GASTROINTESTINAL: Abdomen soft, minimal tenderness to palpation, nondistended. Positive bowel sounds MUSCULOSKELETAL: Extremities without clubbing, cyanosis, or edema. Pedal pulses appreciated NEUROLOGICAL: Awake and alert. Moves all extremity. Normal speech.no focal neurological deficit Hospital Course 26 years old female admitted with Severe abdominal pain and History of recent miscarriage (vaginal bleed ") with beta-hCG dropped from 4000 on December 06-to a level of 12 this time On admission patient was hypotensive, iv fluids started stat consult for [facility] and general surgery obtain, transvaginal ultrasound ordered did not show significant underlying reason for the abdominal pain CT of the abdomen reviewed by surgery, revealed dilation in appendix, patient went to laparoscopy appendectomy, doing well post op. Cleared by surgery for discharge and follow up as an outpatient [facility] revealed cervix motion tenderness, recommended antibiotic with clindamycin and doxycycline at discharge for 7 days and follow up as an outpatient. Discussed with GS, FORMWORK [facility], patient Pt Condition on Discharge: Fair Discharge Disposition: Discharge Home Discharge Time: <= 30 minutes Discharge Instructions DIET: Follow Instructions for: Heart Healthy Diet Activities you can perform: Weight Bearing as Vikash Follow up Referrals: [facility] - 1 Week with Felicia Haynes MD Surgical - 2 Weeks with Oscar Chavez MD New Medications: Clindamycin (Clindamycin) 300 Mg Cap 300 MG PO Q6H Infection #20 Ref 0 CAP Doxycycline Hyclate (Doxycycline Hyclate) 100 Mg Cap 100 MG PO BID Infection #10 Ref 0 CAP Hydrocodone-Acetaminophen (Hydrocodone-Acetaminophen) 5-325 mg Tab 1-2 TAB PO Q4H PRN PAIN #25 TAB Devante Capone MD December 28, 2016 10:10
== END 2016-12-27 15:29 | disposition home or self-care (01) ==
LOC: NEPE 21:40 → NEDA 12-25 04:48 → N06A 12-25 06:22
PROVIDERS: ADMIT Hospitalist; ATTEND Hospitalist
DX: K35.80 Unspecified acute appendicitis (principal)
CPT/HCPCS: 00840; 44970; 74177; 76700; 76817; 80048; 80053; 81001; 83605; 84703; 85025; 85610; 85730; 86850; 86900; 86901; 87210; 87491; 87591; 88304; 96374; 96375; 96376; 99285; G0378; J0131; J1885; J2270; J2370; J2405; J2543; J2710; J3010; J7030; Q9963; Q9967

== ENCOUNTER 2017-02-06 23:47 | Emergency (ER) | payer MEDICAID ==
[~2017-02-06] VITALS: Ht 162.6 cm; Wt 75.0 kg
[~2017-02-06 23:47] MED LIST changes: +CLIN1CAP6 PO; +DOXY100C PO; +HYDR-3516 PO; -ZOFR4TAB3 SL
[2017-02-06 23:48] VITALS: BP 122/62; PULSE 88; RESP 16; TEMP 99.4; O2SAT 99
[2017-02-07] MEDS ORDERED: IBUPROFEN 800 MG TAB PO ONE (00:15)
--- NOTE | 2017-02-07 00:18 | PD ---
HPI Chief Complaint: Injury Time Seen by Provider: 00:12 Travel History International Travel<30 days: No Contact w/Intl Traveler<30days: No Traveled to known affect area: No History of Present Illness HPI Patient is a 27 female presenting to the emergency department for evaluation of right ankle pain. Patient states that she rolled her ankle while running into work at noon today. Initially she was able to ambulate on it however after work she went home and rested for 4 hours, when she tried to get up she couldn' t bear weight. She reports pain is a 6 out of 10, she has not taking anything to alleviate the pain. [facility] Past Medical History Medical History: Denies Significant Hx Cancer: No Cardiovascular Problems: No Chemotherapy: No Diminished Hearing: No Endocrine: No Genitourinary: No Immune Disorder: No Musculoskeletal: No Neurologic: No Psychiatric: No Reproductive: Yes (OVARIAN CYCTS ) Respiratory: No Immunizations Current: Yes Radiation Therapy: No ?: Not LMP: 02/04/17 : 2 Para: 1 : 1 Ovarian Cysts: Yes (HX) Social History Alcohol Use: No Tobacco Use: No Substance Use: No Allergies-Medications (Allergen,Severity, Reaction): Coded Allergies: No Known Allergies (Unverified , 02/07/17) Reported Meds & Prescriptions Reported Meds & Active Scripts Active Flexeril (Cyclobenzaprine HCl) 10 Mg Tab 10 Mg PO TID PRN 7 Days Ibuprofen 800 Mg Tab 800 Mg PO Q6HR PRN Review of Systems Except as stated in HPI: all other systems reviewed are Neg Musculoskeletal: Positive: Myalgias, Arthralgias, Pain Skin: Positive Change in Pigmentation Physical Exam Narrative GENERAL: Well-nourished, well-developed patient. SKIN: Focused skin assessment warm/dry. HEAD: Normocephalic. EYES: No scleral icterus. No injection or drainage. NECK: Supple, trachea midline. No JVD or lymphadenopathy. CARDIOVASCULAR: Regular rate and rhythm without murmurs, gallops, or rubs. RESPIRATORY: Breath sounds equal bilaterally. No accessory muscle use. GASTROINTESTINAL: Abdomen soft, non-tender, nondistended. MUSCULOSKELETAL: No cyanosis, or edema. Mild ecchymosis noted to the anterior right foot just distal to the ankle. Positive pedal pulses, brisk increasing capillary refill. Decreased range of motion with flexion and extension of right ankle. BACK: Nontender without obvious deformity. No CVA tenderness. Data Data Last Documented VS Vital Signs Date Time Temp Pulse Resp B/P Pulse Ox O2 Delivery O2 Flow Rate FiO2 02/06/17 23:48 99.4 88 16 122/62 99 Room Air Orders Ankle, Complete (Qte0jun) (02/07/17 ) Ibuprofen (Motrin) (02/07/17 00:15) Ice / Cold Pack PRN (02/07/17 00:11) Crutches (02/07/17 00:44) MDM Medical Decision Making Medical Screen Exam Complete: Yes Emergency Medical Condition: Yes Interpretation(s) Vital Signs Date Time Temp Pulse Resp B/P Pulse Ox O2 Delivery O2 Flow Rate FiO2 02/06/17 23:48 99.4 88 16 122/62 99 Room Air Differential Diagnosis Sprain versus strain versus fracture versus contusion versus other Narrative Course Patient is a 27 year old female presenting to emergency for evaluation of right ankle and foot pain after rolling it this afternoon around noon. After a period of rest this evening patient was unable to bear weight. Physical examination did not reveal any obvious deformities, patient is neurovascularly intact. Labs and imaging ordered and pending. Patient given ice pack and ibuprofen. X-ray is negative for acute abnormality. Patient was given crutches, a dose of Flexeril. Patient's boyfriend is driving her home. She was encouraged to rest , ice, elevate extremity, continue range of motion exercises, increased weightbearing as tolerated. She was encouraged to follow-up with her primary doctor, take medications as directed. She is encouraged to return to emergency department for any new or worsening symptoms. Patient verbalizes understanding of instructions. Patient stable for discharge. Diagnosis Primary Impression: Right foot strain Qualified Code: S96.911A - Right foot strain, initial encounter Referrals: Primary Care Physician Patient Instructions: Foot Sprain (ED), General Instructions, Muscle Strain (ED ) Additional Instructions: Follow-up with her primary doctor Rest, ice, elevate extremity, continue range of motion exercises Take medications as directed Return to emergency department for any new or worsening symptoms Med/Other Pt SpecificInfo: Prescription(s) given Scripts Cyclobenzaprine (Flexeril)10 Mg Tab10 Mg PO TID PRN (MUSCLE SPASM) 7 Days Ref 0 Prov:Mag Hawk 02/07/17 Ibuprofen 800 Mg [id number] Mg PO Q6HR PRN (PAIN) #40 TAB Ref 0 Prov:Mag Hawk 02/07/17 Disposition: 01 DISCHARGE HOME Condition: Stable Mag Hawk Feb 07, 2017 00:18
--- NOTE | 2017-02-07 00:42 | RADRPT ---
EXAM DATE/TIME: 02/07/2017 00:23 [facility] COMPARISON: No previous studies available for comparison. INDICATIONS : Right ankle pain post fall. MEDICAL HISTORY : None. SURGICAL HISTORY : None. ENCOUNTER: Initial ACUITY: 1 day PAIN SCORE: 4/10 LOCATION: Right ankle FINDINGS: No definite fractures, or dislocations are identified. No definite lytic or sclerotic lesion is seen . The joint spaces are well maintained. CONCLUSION: Unremarkable study. Juan M Graham MD on February 07, 2017 at 0:40 Board Certified Radiologist. This report was verified electronically.
[2017-02-07] MEDS ORDERED: IBUP800T23 PO (00:46)
[2017-02-07] MEDS ORDERED: CYCL1TAB29 PO (00:46)
[2017-02-07] MEDS ORDERED: CYCLOBENZAPRINE HCL 10 MG TAB PO ONE (01:00)
== END 2017-02-07 01:06 | disposition home or self-care (01) ==
LOC: NEPD 23:47
DX: S96.911A Strain of unspecified muscle and tendon at ankle and foot level, right foot, initial encounter (principal); X50.0XXA Overexertion from strenuous movement or load, initial encounter; Y93.02 Activity, running
CPT/HCPCS: 73610; 99283; E0113

== ENCOUNTER 2017-12-29 12:28 | Emergency (ER) | payer MEDICAID ==
[~2017-12-29] VITALS: Ht 162.6 cm; Wt 76.0 kg
[~2017-12-29 12:28] MED LIST changes: -CLIN1CAP6 PO; +CYCL10TA PO; -DOXY100C PO; -HYDR-3516 PO; +IBUP1TAB7 PO
[2017-12-29 12:35] VITALS: BP 119/56; PULSE 84; RESP 16; TEMP 99.4; O2SAT 100
[2017-12-29] MEDS ORDERED: ONDANSETRON HCL 4 MG/2 ML VIAL IVP ONE (12:45)
[2017-12-29] MEDS ORDERED: SODIUM CHLOR 0.9% 1000 ML INJ 1,000 ML IV SCH (12:45)
--- NOTE | 2017-12-29 12:46 | PD ---
HPI Chief Complaint: Abdominal Pain Time Seen by Provider: 12:38 Travel History International Travel<30 days: No Contact w/Intl Traveler<30days: No Traveled to known affect area: No History of Present Illness HPI 27-year-old female presents for evaluation of nausea, vomiting, diarrhea, abdominal pain. Symptoms started yesterday afternoon. She reports approximately 4 episodes of nonbloody emesis today as well as 5-6 episodes of nonbloody watery diarrhea today. She reports a mild dull pain in her suprapubic region. She reports that she completed her menstrual period 2 days ago and her current discomfort feels like her menstrual pain. She denies any current vaginal bleeding or vaginal discharge. She denies fevers, chills, flank pain, increased urinary frequency or hesitancy, dysuria. Denies any dietary changes. She reports that she is sexually active with one long-term partner for the past 4 years. She reports history of appendectomy. No other complaints at this time. PFSH Past Medical History Cancer: No Cardiovascular Problems: No Chemotherapy: No Diminished Hearing: No Endocrine: No Genitourinary: No Immune Disorder: No Musculoskeletal: No Neurologic: No Psychiatric: No Reproductive: Yes (OVARIAN CYCTS ) Respiratory: No Immunizations Current: Yes Radiation Therapy: No ?: Not LMP: 2 days ago ended : 2 Para: 1 : 1 Ovarian Cysts: Yes (HX) Past Surgical History Appendectomy: Yes Social History Alcohol Use: No Tobacco Use: No Substance Use: No Allergies-Medications (Allergen,Severity, Reaction): Coded Allergies: No Known Allergies (Unverified , 02/07/17) Reported Meds & Prescriptions Reported Meds & Active Scripts Active Zofran (Ondansetron HCl) 4 Mg Tab 4 Mg PO Q6HR PRN Flexeril (Cyclobenzaprine HCl) 10 Mg Tab 10 Mg PO TID PRN 7 Days Ibuprofen 800 Mg Tab 800 Mg PO Q6HR PRN Review of Systems Except as stated in HPI: all other systems reviewed are Neg Physical Exam Narrative GENERAL: Well-developed well-nourished female no acute distress SKIN: Warm and dry. HEAD: Atraumatic. Normocephalic. EYES: Pupils equal and round. No scleral icterus. No injection or drainage. ENT: No nasal bleeding or discharge. Mucous membranes pink and moist. NECK: Trachea midline. No JVD. CARDIOVASCULAR: Regular rate and rhythm. No murmur appreciated. RESPIRATORY: No accessory muscle use. Clear to auscultation. Breath sounds equal bilaterally. GASTROINTESTINAL: Abdomen soft, mild suprapubic tenderness without guarding. There is no tenderness to palpation the right lower left lower quadrants. MUSCULOSKELETAL: No obvious deformities. No clubbing. No cyanosis. No edema. NEUROLOGICAL: Awake and alert. No obvious cranial nerve deficits. Motor grossly within normal limits. Normal speech. Data Data Last Documented VS Vital Signs Date Time Temp Pulse Resp B/P (MAP) Pulse Ox O2 Delivery O2 Flow Rate FiO2 12/29/17 13:05 16 12/29/17 12:35 99.4 84 119/56 (77) 100 Orders Orders Complete Blood Count With Diff (12/29/17 12:45) Comprehensive Metabolic Panel (12/29/17 12:45) Lipase (12/29/17 12:45) Urinalysis - C+S If Indicated (12/29/17 12:45) Iv Access Insert/Monitor (12/29/17 12:45) Ondansetron Inj (Zofran Inj) (12/29/17 12:45) Sodium Chlor 0.9% 1000 Ml Inj (Ns 1000 M (12/29/17 12:45) Ed Urine Pregnancytest Poc (12/29/17 12:45) Ed Discharge Order (12/29/17 13:56) Labs Laboratory Tests Test 12/29/17 13:00 White Blood Count 4.3 TH/MM3 Red Blood Count 4.37 MIL/MM3 Hemoglobin 13.0 GM/DL Hematocrit 38.2 % Mean Corpuscular Volume 87.4 FL Mean Corpuscular Hemoglobin 29.7 PG Mean Corpuscular Hemoglobin Concent 34.0 % Red Cell Distribution Width 13.3 % Platelet Count 301 TH/MM3 Mean Platelet Volume 7.5 FL Neutrophils (%) (Auto) 78.5 % Lymphocytes (%) (Auto) 14.8 % Monocytes (%) (Auto) 5.7 % Eosinophils (%) (Auto) 0.8 % Basophils (%) (Auto) 0.2 % Neutrophils # (Auto) 3.3 TH/MM3 Lymphocytes # (Auto) 0.6 TH/MM3 Monocytes # (Auto) 0.2 TH/MM3 Eosinophils # (Auto) 0.0 TH/MM3 Basophils # (Auto) 0.0 TH/MM3 CBC Comment DIFF FINAL Differential Comment Urine Color YELLOW Urine Turbidity HAZY Urine pH 6.5 Urine Specific [place] 1.023 Urine Protein NEG mg/dL Urine Glucose (UA) NEG mg/dL Urine Ketones NEG mg/dL Urine Occult Blood MOD Urine Nitrite NEG Urine Bilirubin NEG Urine Urobilinogen 0.2 MG/DL Urine Leukocyte Esterase NEG Urine RBC 11 /hpf Urine WBC LESS THAN 1 /hpf Urine Squamous Epithelial Cells 14 /hpf Urine Bacteria OCC /hpf Urine Mucus MOD /lpf Microscopic Urinalysis Comment CULT NOT INDICATED Blood Urea Nitrogen 8 MG/DL Creatinine 0.71 MG/DL Random Glucose 84 MG/DL Total Protein 7.2 GM/DL Albumin 3.6 GM/DL Calcium Level 8.7 MG/DL Alkaline Phosphatase 88 U/L Aspartate Amino Transf (AST/SGOT) 21 U/L Alanine Aminotransferase (ALT/SGPT) 21 U/L Total Bilirubin 0.3 MG/DL Sodium Level 140 MEQ/L Potassium Level 3.9 MEQ/L Chloride Level 107 MEQ/L Carbon Dioxide Level 26.6 MEQ/L Anion Gap 6 MEQ/L Estimat Glomerular Filtration Rate 120 ML/MIN Lipase 82 U/L [facility] Medical Decision Making Medical Screen Exam Complete: Yes Emergency Medical Condition: Yes Medical Record Reviewed: Yes Differential Diagnosis Gastroenteritis, food poisoning, gastritis, colitis, pelvic inflammatory disease , ovarian cyst, ovarian torsion, ovarian abscess, diverticulitis Narrative Course The patient will be provided IV fluids and antiemetics. Lab work, urinalysis has been ordered. The patient's lab work has been reviewed and is essentially unremarkable. She feels improved after the administration of Zofran. She is still has diarrhea. Suspect viral gastroenteritis as the etiology of her symptoms. She will be discharged with an antiemetic. Discussed signs and symptoms that would warrant returning to the emergency room. Diagnosis Primary Impression: Gastroenteritis Additional Instructions: Medication as needed. Slowly advance diet as tolerated. Return for any acutely new or worsening symptoms. Med/Other Pt SpecificInfo: Prescription(s) given Scripts Ondansetron (Zofran) 4 Mg Tab 4 MG PO Q6HR Y for NAUSEA OR VOMITING, #20 TAB 0 Refills Prov: Jonny Trimble MD 12/29/17 Disposition: DISCHARGE HOME Condition: Stable Kenneth Hunt December 29, 2017 12:46
[2017-12-29 13:12] LABS: AUTOMATED NEUTROPHIL # 3.3 TH/MM3 (1.8-7.7); BASOPHIL % 0.2 % (0.0-2.0); EOSINOPHIL % 0.8 % (0.0-4.0); HEMATOCRIT 38.2 % (35.0-46.0); LYMPH % 14.8 % (9.0-44.0); LYMPHOCYTE # 0.6 TH/MM3 (1.0-4.8); MEAN CELL VOLUME 87.4 FL (80.0-100.0); MEAN CORPUSCULAR HEMOGLOBIN 29.7 PG (27.0-34.0); MEAN PLATELET VOLUME 7.5 FL (7.0-11.0); MONO % 5.7 % (0.0-8.0); MONOCYTE # 0.2 TH/MM3 (0-0.9); NEUT % 78.5 % (16.0-70.0); PLATELET COUNT 301 TH/MM3 (150-450); RED BLOOD COUNT 4.37 MIL/MM3 (4.00-5.30); RED CELL DISTRIBUTION WIDTH 13.3 % (11.6-17.2); WHITE BLOOD COUNT 4.3 TH/MM3 (4.0-11.0)
[2017-12-29 13:30] LABS: ALBUMIN 3.6 GM/DL (3.4-5.0); ALT (GPT) 21 U/L (10-53); AST (GOT) 21 U/L (15-37); BICARBONATE 26.6 MEQ/L (21.0-32.0); BLOOD UREA NITROGEN 8 MG/DL (7-18); CALCIUM 8.7 MG/DL (8.5-10.1); CHLORIDE 107 MEQ/L (98-107); CREATININE 0.71 MG/DL (0.50-1.00); GLOMERULAR FILTRATION RATE 120 ML/MIN (>89); GLUCOSE,RANDOM 84 MG/DL (74-106); SODIUM (NA) 140 MEQ/L (136-145)
[2017-12-29 13:32] LABS: ALKALINE PHOSPHATASE 88 U/L (45-117); TOTAL BILIRUBIN ADULT 0.3 MG/DL (0.2-1.0); TOTAL PROTEIN 7.2 GM/DL (6.4-8.2)
[2017-12-29 13:33] LABS: BILIRUBIN, URINE NEG (NEG); BLOOD, URINE MOD (NEG); GLUCOSE,URINE NEG (NEG); KETONE, URINE NEG (NEG); NITRITE,URINE NEG (NEG); PH, URINE 6.5 (5.0-8.5); URINE COLOR YELLOW (YELLW/STRAW); URINE LEUKOCYTE ESTERASE NEG (NEG)
[2017-12-29 13:48] LABS: BACTERIA, URINE OCC /hpf; MUCUS URINE MOD /lpf (OCC); SQUAMOUS EPITHELIAL CELL URINE 14 /hpf (0-5)
[2017-12-29] MEDS ORDERED: ZOFR4TAB PO (13:56)
== END 2017-12-29 14:02 | disposition home or self-care (01) ==
LOC: NEPD 12:28
DX: K52.9 Noninfective gastroenteritis and colitis, unspecified (principal)
CPT/HCPCS: 80053; 81001; 83690; 84703; 85025; 96360; 99284; J2405; J7030